=== PATIENT | female | born 1980 | race African-American/Black ===

== ENCOUNTER 2023-01-08 15:58 | Inpatient (IN) | payer OTHER, SELFPAY ==
[2023-01-08 16:30] VITALS: BP 128/92; PULSE 86; RESP 18; TEMP 36.5; O2SAT 98
[2023-01-08 16:36] VITALS: BMI 28.0
--- NOTE | 2023-01-08 17:24 | HO.PM.IMCN ---
History of Present Illness Data of Consult Service Date: 01/08/23 Requesting physician: Jesus Carey Primary Care Provider: Ankita Samano MD HPI Reason for consult: medical H&P 42-year-old female with history of bipolar disorder, anxiety, alcoholic cirrhosis, and alcohol dependence admitted to Psychiatry from [facility] ED. The patient is unavailable for exam but hospital records are reviewed. Shows a chronic thrombocytopenia related to her cirrhosis as well as mild normocytic anemia. Liver enzymes slightly elevated with AST 60, ALT 42, bilirubin unremarkable. Renal function normal, electrolyte levels normal. Urine tox screen negative except for cannabis. There are no acute medical issues at this time. Review of Systems Review of Systems: Yes Other (pt unavailable) [facility] Medical History (Updated 01/08/23 @ 17:28 by YANA Ordonez) Bipolar disorder Alcohol dependence Alcoholic cirrhosis Social History Household Members: Other Household Members Other:: roommate Housing: Apartment Do you presently have visiting nurse or other home services: No Patient Tobacco Use Status: Former Tobacco user Tobacco use type: Cigarette Smoked in Last 30 Days: No e-Cigarette/Vaping Use: Never Used Patient Interested in Nicotine Replacement: No Patient Given Instructions on How to Stop Smoking: No Second Hand Smoke Exposure: No Use of substances other than those prescribed or required for medical reasons: No Substance Use Type: Marijuana Substance Use Type Other:: pt denies current substance use, UTOX +THC Currently Displaying Signs/Symptoms of Drug Intoxication Withdrawal: No Any prior treatment program specific to substance use: No Have you been hit, kicked, punched, or otherwise hurt by someone within the past year? If so, by whom?: No Do you feel safe in your current relationship?: No Current Relationship Is there a partner from a previous relationship who is making you feel unsafe now?: No Are you made to feel afraid or neglected: No Spiritual Healthcare Practices: pt states I like to meditate Advance Directives: No Advance Directives Information Provided: Yes Do you have thoughts of harming others: None Do you have a plan to hurt others: No Plan Recently lost weight without trying: Yes How much weight loss: 2-13 pounds Eating poorly because of decreased appetite: Yes Nutrition screen score: 4 Nutrition Risks: No Nutritional Risk Patient : No : No Poor oral hygiene: No Meds Allergies Allergy/AdvReac Type Severity Reaction Status Date / Time No Known Drug Allergies Allergy Unknown Verified 01/08/23 16:36 Home Medications Medication Instructions Recorded Confirmed Last Taken Type acamprosate 333 mg tablet,delayed 666 mg PO TID 01/08/23 01/08/23 Unknown History release folic acid 1 mg tablet 1 mg PO DAILY 01/08/23 01/08/23 Unknown History risperidone 4 mg tablet 4 mg PO BEDTIME depressive disorder 01/08/23 01/08/23 Unknown History trazodone 50 mg tablet 50 mg PO BEDTIME depressive 01/08/23 01/08/23 Unknown History disorder Physical Exam Vital Signs and Narrative: Vital Signs: Last Vital Signs Temp 97.7 F 01/08/23 16:30 Pulse 86 01/08/23 16:30 Resp 18 01/08/23 16:30 BP 128/92 H 01/08/23 16:30 Pulse Ox 98 01/08/23 16:30 O2 Del Method Room Air 01/08/23 16:30 BMI result Body Mass Index 28.0 Pt unavailable for exam Assessment and Plan (1) Routine medical exam: Status: Acute Plan 42-year-old female with history of bipolar disorder, anxiety, alcoholic cirrhosis, and alcohol dependence admitted to Psychiatry from [facility] ED. #Mood disorder -plan per psychiatry #Alcohol dependence -plan per psychiatry -total cessation advised #Alcoholic cirrhosis -compensated -total etoh cessation advised -continue home meds Thank you for allowing me to participate in this consult. Signing off at this time. Please do not hesitate to call for further questions. Time Spent With Patient Time: Total time managing care of this patient today ____ minutes.
--- NOTE | 2023-01-08 18:22 | PC.ADMIT ---
Katerine was admitted to [facility] from [facility] for treatment of petra. The precipitant of admission includes poor sleep for multiple days and increased anxiety. She reports that she has not been taking her medications and states this is because they do not work. She is alert and oriented x4 but has poor insight into illness. She was overall cooperative with admission process. Sharps check was completed by staff. She denies current suicidal and homicidal thoughts and intent. She states she is able to seek out staff if having any safety issues. She denies history of SIB. She endorses auditory and visual hallucinations and states they're always kind of there, stuff flashing by and things like that, it might be because I'm not sleeping . She reports appetite is up and down . She reports history of ETOH abuse but states she has been sober x2 years, BAL was <3. She denies substance abuse but UTOX was +THC. She denies physical complaints at this time. She was placed on 15 minute checks for safety.
[2023-01-09 09:37] VITALS: BP 132/81; PULSE 73; RESP 18; TEMP 36.4; O2SAT 100
--- NOTE | 2023-01-09 12:22 | HO.PSYCHPN ---
Subjective Subjective Reason For Visit: Bipolar disorder Diagnostics Vital Signs (24Hr): Vital Signs - 24 hr 01/08/23 16:30 01/09/23 09:37 Temperature 97.7 F 97.5 F Pulse Rate 86 73 Respiratory Rate 18 18 Blood Pressure 128/92 H 132/81 Pulse Oximetry 98 100 Oxygen Delivery Method Room Air Room Air BMI result Body Mass Index 28.0 Medications Medications Current Medications Acamprosate (Acamprosate Calcium 333 Mg Tablet.) 666 mg PO TID [facility] Last Admin: 01/09/23 09:25 Dose: Not Given Acetaminophen (Acetaminophen 325 Mg Tablet) 650 mg PO Q6H PRN PRN Reason: Headache/Pain Mild Scale (1-3) Al Hydroxide/Mg Hydroxide (Magnesium Hydrox/Alum Hydrox 30 Ml Oral.Susp) 30 ml PO Q6H PRN PRN Reason: Heartburn/Nausea Folic Acid (Folic Acid 1 Mg Tablet) 1 mg PO DAILY [facility] Last Admin: 01/09/23 09:23 Dose: 1 mg Hydroxyzine HCl (Hydroxyzine Hcl 25 Mg Tablet) 25 mg PO Q6H PRN PRN Reason: Anxiety Last Admin: 01/09/23 12:13 Dose: 25 mg Magnesium Hydroxide (Milk Of Magnesia 30 Ml Oral.Susp) 30 ml PO DAILY PRN PRN Reason: Constipation Multivitamins/Vitamin C (Multivitamin Tablet) 1 tab PO DAILY [facility] Risperidone (Risperidone 2 Mg Tablet) 4 mg PO BEDTIME [facility] Last Admin: 01/08/23 20:37 Dose: 4 mg Trazodone HCl (Trazodone Hcl 50 Mg Tablet) 50 mg PO BEDTIME MRX1 PRN PRN Reason: Insomnia Allergies Allergies Allergy/AdvReac Type Severity Reaction Status Date / Time No Known Drug Allergies Allergy Unknown Verified 01/08/23 16:36 Assessment & Plan Assessment & Plan (1) Routine medical exam: Status: Acute Code(s): Z00.00 - Encounter for general adult medical examination without abnormal findings Plan 42-year-old female with history of bipolar disorder, anxiety, alcoholic cirrhosis, and alcohol dependence admitted to Psychiatry from [facility] ED. #Mood disorder -plan per psychiatry #Alcohol dependence -plan per psychiatry -total cessation advised #Alcoholic cirrhosis -compensated -total etoh cessation advised -continue home meds Thank you for allowing me to participate in this consult. Signing off at this time. Please do not hesitate to call for further questions. Time Spent With Patient Time: Total time managing care of this patient today ____ minutes.
--- NOTE | 2023-01-09 13:56 | HO.PSYADMNOT ---
HPI Date of Service: 01/09/23 Chief Complaint: Bipolar disorder Sources of Information: patient interviewed, chart reviewed and crisis/core team assessment reviewed HPI Subjective Notes: Conditional Voluntary Narrative: Patient is a 42 year old Female with a past history of bipolar disorder who is transferred from [facility]. She presented there with increased anxiety, inability to sleep and poor concentration. She was recently discharged from [facility]. She was not taking her perscribed Risperidone after discharge. Patient reports that Risperidone was helpful but unable to say why she stopped taking it. Patient says that i wasn't sleeping, I am aggitated because I cannot figure myself out. My life has been taking me on different paths and journeys. Patient appears pre-occupied during the interview and seems to be responding to internal stimuli. She is vauge and guarded. She reports poor sleep, overthinking, decrease energy, and paranoia. She reports her mood is agitated. She denies suicidal ideation. According to the crisis report, her sister said that she has episodes of catatonia. Past Psychiatric History: At least 3 prior inpatient phsyciatric hospitilizations at [facility]. No reported suicide attempts Reported diagnosis of Bipolar Disorder Medical Evaluation Reviewed: Yes [facility] Medical History (Updated 01/09/23 @ 22:22 by Juan Miguel Walker MD) Bipolar disorder Alcohol dependence Alcoholic cirrhosis Family History: None reported Social History: Single, never , no children. Patient graduated high school and had some college education. 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 She lives alone in [place]. Substance History: History of alcohol abuse. Urine toxicology positive for cannabis. Trauma History: Patient declines to elaborate. Diagnostics Vital Signs (24Hr): Vital Signs - 24 hr 01/08/23 16:30 01/09/23 09:37 Temperature 97.7 F 97.5 F Pulse Rate 86 73 Respiratory Rate 18 18 Blood Pressure 128/92 H 132/81 Pulse Oximetry 98 100 Oxygen Delivery Method Room Air Room Air BMI result Body Mass Index 28.0 Meds/Allergies Meds Home Medications Medication Instructions Recorded Confirmed Type acamprosate 333 mg tablet,delayed 666 mg PO TID 01/08/23 01/08/23 History release folic acid 1 mg tablet 1 mg PO DAILY 01/08/23 01/08/23 History risperidone 4 mg tablet 4 mg PO BEDTIME depressive disorder 01/08/23 01/08/23 History trazodone 50 mg tablet 50 mg PO BEDTIME depressive 01/08/23 01/08/23 History disorder Allergies Allergies Allergy/AdvReac Type Severity Reaction Status Date / Time No Known Drug Allergies Allergy Unknown Verified 01/08/23 16:36 Mental Status Exam Mental Status Exam Narrative: 42 year old female who appears her stated age. She is wearing a hospital gown. She appears disheveled. Her attitude she is evasive and guarded. Her speech is hesitant. She appears internally pre occupied. Her mood is agitated and her affect is flat and anxious. Her thought process is circumstantial. Thought content is positive for anxiety and paranoia. She denies active hallucinations but appears to be responding to internal stimuli. She denies suicidal ideation or homocudal ideation. She is alert and oriented to time place and person. Assessment & Plan Assessment & Plan (1) Bipolar 1 disorder, depressed: Status: Acute Code(s): F31.9 - Bipolar disorder, unspecified Plan 42 year old female with a history of bipolar disorder presents with increased depression and internal aggitation, anxiety and insomnia. She was recently discharged from [facility] and has been non complient with her medications. She appears internally pre-occcupied. She agrees to restart her medications. Plan: 1. Admit to M3 for safety and stabilization on a CV. 2. restart Risperidone 4 mg at bedtime. 3. Collateral information 4. Group and milieu therapy 5. Discharge planning Patient educated on: therapeutic strategies Reason for continued inpatient stay Substantial Risk for: inability to function and rapid decompensation Statement Statement: I have reviewed the history and physical and performed a pertinent examination on my patient. No changes have occurred unless specified. If the History and Physical was not performed prior to admission, the Hospitalist's service will be consulted for completing the admission physical. Time Spent With Patient Time: Total time managing care of this patient today ____ minutes.
[2023-01-10 07:50] VITALS: BP 124/79; PULSE 96; RESP 20; TEMP 36.7; O2SAT 100
--- NOTE | 2023-01-10 19:11 | HO.PSYCHPN ---
Subjective Subjective Date of Service: 01/10/23 Reason For Visit: Bipolar disorder Interim History: Patient seen and discussed. She remains isolated. She refused labs. Says she is bored. She was asked why she stopped Risperidone on DC from [place] she said she thought she was being attacked in her sleep. She started questioning how this junior copywriter knew about her hospitalization and was paranoid when it was explained it was in her crisis report. She was internally preoccupied and guarded. Refused Campral. Denied SI. Review of Systems Review of Systems Yes Other (pt unavailable) Mental Status Exam Mental Status Exam Narrative: 42 year old female who appears her stated age. She is wearing a hospital gown. She appears disheveled. Her attitude she is evasive and guarded. Her speech is hesitant. She appears internally pre occupied. Her mood is agitated and her affect is flat and anxious. Her thought process is circumstantial. Thought content is positive for anxiety and paranoia. She denies active hallucinations but appears to be responding to internal stimuli. She denies suicidal ideation or homocudal ideation. She is alert and oriented to time place and person. Diagnostics Vital Signs (24Hr): Vital Signs - 24 hr 01/10/23 07:50 Temperature 98.0 F Pulse Rate 96 Respiratory Rate 20 Blood Pressure 124/79 Pulse Oximetry 100 Oxygen Delivery Method Room Air BMI result Body Mass Index 28.0 Medications Medications Current Medications Acamprosate (Acamprosate Calcium 333 Mg Tablet.) 666 mg PO TID [facility] Last Admin: 01/10/23 15:29 Dose: 666 mg Acetaminophen (Acetaminophen 325 Mg Tablet) 650 mg PO Q6H PRN PRN Reason: Headache/Pain Mild Scale (1-3) Al Hydroxide/Mg Hydroxide (Magnesium Hydrox/Alum Hydrox 30 Ml Oral.Susp) 30 ml PO Q6H PRN PRN Reason: Heartburn/Nausea Folic Acid (Folic Acid 1 Mg Tablet) 1 mg PO DAILY [facility] Last Admin: 01/10/23 08:53 Dose: 1 mg Hydroxyzine HCl (Hydroxyzine Hcl 50 Mg Tablet) 50 mg PO QID PRN PRN Reason: Anxiety Last Admin: 01/10/23 14:37 Dose: 50 mg Magnesium Hydroxide (Milk Of Magnesia 30 Ml Oral.Susp) 30 ml PO DAILY PRN PRN Reason: Constipation Multivitamins/Vitamin C (Multivitamin Tablet) 1 tab PO DAILY [facility] Last Admin: 01/10/23 09:04 Dose: Not Given Risperidone (Risperidone 2 Mg Tablet) 4 mg PO BEDTIME [facility] Last Admin: 01/09/23 20:28 Dose: 4 mg Trazodone HCl (Trazodone Hcl 50 Mg Tablet) 50 mg PO BEDTIME MRX1 PRN PRN Reason: Insomnia Allergies Allergies Allergy/AdvReac Type Severity Reaction Status Date / Time No Known Drug Allergies Allergy Unknown Verified 01/08/23 16:36 Assessment & Plan Assessment & Plan (1) Bipolar 1 disorder, depressed: Status: Acute Code(s): F31.9 - Bipolar disorder, unspecified Plan 42 year old female with a history of bipolar disorder presents with increased depression and internal aggitation, anxiety and insomnia. She was recently discharged from [facility] and has been non complient with her medications. She appears internally pre-occcupied. She agrees to restart her medications. Plan: 1. Admit to [facility] for safety and stabilization on a CV. 2. restart Risperidone 4 mg at bedtime. 3. Collateral information 4. Group and milieu therapy 5. Discharge planning 01/10: Continue current treatment plan. Reason for continued inpatient stay Substantial Risk for: inability to function and rapid decompensation Time Spent With Patient Time: Total time managing care of this patient today ____ minutes.
[2023-01-10 19:40] VITALS: BP 121/77; PULSE 84; RESP 18; TEMP 36.6; O2SAT 100
[2023-01-11 09:45] VITALS: RESP 20; TEMP 36.4
--- NOTE | 2023-01-11 12:09 | HO.PSYCHPN ---
Subjective Subjective Date of Service: 01/11/23 Reason For Visit: Bipolar disorder Subjective Notes: Conditional Voluntary Interim History: Patient was seen and discussed in rounds today. Records and plans were reviewed. She continues to be isolative, guarded and complained of feeling very anxious and jittery. She has been refusing her camper all. Using hydroxyzine but states that is not enough. I will add Seroquel 25 mg t.i.d. p.r.n.. Side effects reviewed. Eating and sleeping adequately. Medication Compliance: Intermittent Side effects from medications: No Attending Groups: Yes Diagnostics Vital Signs (24Hr): Vital Signs - 24 hr 01/10/23 19:40 01/11/23 09:45 Temperature 97.9 F 97.5 F Pulse Rate 84 Respiratory Rate 18 20 Blood Pressure 121/77 Pulse Oximetry 100 Oxygen Delivery Method Room Air BMI result Body Mass Index 28.0 Medications Medications Current Medications Acamprosate (Acamprosate Calcium 333 Mg Tablet.) 666 mg PO TID [facility] Last Admin: 01/11/23 09:50 Dose: 666 mg Acetaminophen (Acetaminophen 325 Mg Tablet) 650 mg PO Q6H PRN PRN Reason: Headache/Pain Mild Scale (1-3) Al Hydroxide/Mg Hydroxide (Magnesium Hydrox/Alum Hydrox 30 Ml Oral.Susp) 30 ml PO Q6H PRN PRN Reason: Heartburn/Nausea Folic Acid (Folic Acid 1 Mg Tablet) 1 mg PO DAILY [facility] Last Admin: 01/11/23 09:49 Dose: 1 mg Hydroxyzine HCl (Hydroxyzine Hcl 50 Mg Tablet) 50 mg PO QID PRN PRN Reason: Anxiety Last Admin: 01/11/23 09:55 Dose: 50 mg Magnesium Hydroxide (Milk Of Magnesia 30 Ml Oral.Susp) 30 ml PO DAILY PRN PRN Reason: Constipation Multivitamins/Vitamin C (Multivitamin Tablet) 1 tab PO DAILY [facility] Last Admin: 01/11/23 09:49 Dose: 1 tab Risperidone (Risperidone 2 Mg Tablet) 4 mg PO BEDTIME [facility] Last Admin: 01/10/23 21:10 Dose: 4 mg Trazodone HCl (Trazodone Hcl 50 Mg Tablet) 50 mg PO BEDTIME MRX1 PRN PRN Reason: Insomnia Allergies Allergies Allergy/AdvReac Type Severity Reaction Status Date / Time No Known Drug Allergies Allergy Unknown Verified 01/08/23 16:36 Assessment & Plan Assessment & Plan (1) Bipolar 1 disorder, depressed: Status: Acute Code(s): F31.9 - Bipolar disorder, unspecified Plan 42 year old female with a history of bipolar disorder presents with increased depression and internal aggitation, anxiety and insomnia. She was recently discharged from [facility] and has been non complient with her medications. She appears internally pre-occcupied. She agrees to restart her medications. Plan: 1. Admit to [facility] for safety and stabilization on a CV. 2. restart Risperidone 4 mg at bedtime. 3. Collateral information 4. Group and milieu therapy 5. Discharge planning 01/10: Continue current treatment plan. 01/11: Continue current regimen and plans. Add Seroquel 25 mg t.i.d. p.r.n. Patient educated on: medication risk/benefits Reason for continued inpatient stay Substantial Risk for: med/psych decompensation Time Spent With Patient Time: Total time managing care of this patient today ____ minutes.
--- NOTE | 2023-01-11 14:37 | MHC.CLN ---
NUTRITION CONSULT FOR PATIENT REPORTED WEIGHT LOSS GREATER THAN 10# X ONE MONTH. VISITED WITH PATIENT ON UNIT. STATED THAT CURRENTLY EATING WELL. DOES NOT WANT SUPPLEMENT. NO ADDITIONAL NUTRITION INTERVENTIONS AT THIS TIME.
[2023-01-11 21:00] VITALS: RESP 18
[2023-01-12 08:54] VITALS: BP 96/55; PULSE 74; RESP 20; TEMP 36.6; O2SAT 100
--- NOTE | 2023-01-12 09:35 | HO.PSYCHPN ---
Subjective Subjective Date of Service: 01/12/23 Reason For Visit: Bipolar disorder Subjective Notes: Conditional Voluntary Interim History: Reviewed in team and . Patient presents guarded and irritable; perseverative about her coloring markers. Patient stated, I hate having to ask for everything. I'm stressed out. I want a 1:1 so I can use my markers . T/W explained the reasons someone is placed on a 1:1 and her wanting markers would not be a reason. She was given the option to use her markers in the common area. Pt stated, I don't want to be around positive people. I want to avoid the negative energy. I don't want to hear people talk about suicide . Patient presents with some paranoid thought content. Pt stated, I don't like taking pills at night because, every time I'm in the hospital I wake up with a bloody mouth and feel like someone beat me up . Patient was informed that she would be kept safe while on the unit and staff would be conducting safety checks on patients throughout the night. Patient did not acknowledge T/W and would continue to bring the conversation back to her coloring markers. When asked if she was feeling suicidal; pt stated, I don't know. This is how I have to act to get what I want now . Medication Compliance: Intermittent Side effects from medications: No Attending Groups: No Review of Systems Constitutional: Reports as per HPI Eyes: Reports as per HPI Reports as per HPI Cardiovascular: Reports as per HPI Respiratory: Reports as per HPI Gastrointestinal: Reports as per HPI Genitourinary: Reports as per HPI Musculoskeletal: Reports as per HPI Skin/Breast: Reports as per HPI Reports as per HPI Psychiatric: Reports as per HPI Endocrine: Reports as per HPI Hematologic/Lymphatic: Reports as per HPI Allergic/Immunologic: Reports as per HPI Mental Status Exam Mental Status Exam Narrative: Pt is alert and oriented; behavior is guarded and irritable; dressed in casual attire; mood is described as anxious ; eye contact appropriate; Speech is normal rate, volume and prosody and not pressured; no psychomotor agitation/retardation present; thought process is organized; Thought content is perseverative; presents with some delusions regarding taking medications at night while at hospitals;. There is no evidence of perceptual disturbance. Patients insight and judgment are poor.. Diagnostics Vital Signs (24Hr): Vital Signs - 24 hr 01/11/23 09:45 01/11/23 21:00 01/12/23 08:54 Temperature 97.5 F 97.8 F Pulse Rate 74 Respiratory Rate 20 18 20 Blood Pressure 96/55 L Pulse Oximetry 100 Oxygen Delivery Method Room Air BMI result Body Mass Index 28.0 Medications Medications Current Medications Acamprosate (Acamprosate Calcium 333 Mg Tablet.Dr) 666 mg PO TID [facility] Last Admin: 01/12/23 08:45 Dose: Not Given Acetaminophen (Acetaminophen 325 Mg Tablet) 650 mg PO Q6H PRN PRN Reason: Headache/Pain Mild Scale (1-3) Al Hydroxide/Mg Hydroxide (Magnesium Hydrox/Alum Hydrox 30 Ml Oral.Susp) 30 ml PO Q6H PRN PRN Reason: Heartburn/Nausea Folic Acid (Folic Acid 1 Mg Tablet) 1 mg PO DAILY [facility] Last Admin: 01/12/23 08:44 Dose: 1 mg Hydroxyzine HCl (Hydroxyzine Hcl 50 Mg Tablet) 50 mg PO QID PRN PRN Reason: Anxiety Last Admin: 01/11/23 09:55 Dose: 50 mg Magnesium Hydroxide (Milk Of Magnesia 30 Ml Oral.Susp) 30 ml PO DAILY PRN PRN Reason: Constipation Multivitamins/Vitamin C (Multivitamin Tablet) 1 tab PO DAILY [facility] Last Admin: 01/12/23 08:44 Dose: 1 tab Quetiapine Fumarate (Quetiapine Fumarate 25 Mg Tablet) 25 mg PO TID PRN PRN Reason: Anxiety Last Admin: 01/11/23 15:10 Dose: 25 mg Risperidone (Risperidone 2 Mg Tablet) 4 mg PO BEDTIME [facility] Last Admin: 01/11/23 21:03 Dose: 4 mg Trazodone HCl (Trazodone Hcl 50 Mg Tablet) 50 mg PO BEDTIME MRX1 PRN PRN Reason: Insomnia Allergies Allergies Allergy/AdvReac Type Severity Reaction Status Date / Time No Known Drug Allergies Allergy Unknown Verified 01/08/23 16:36 Assessment & Plan Assessment & Plan (1) Bipolar 1 disorder, depressed: Status: Acute Code(s): F31.9 - Bipolar disorder, unspecified Plan 42 year old female with a history of bipolar disorder presents with increased depression and internal aggitation, anxiety and insomnia. She was recently discharged from [facility] and has been non complient with her medications. She appears internally pre-occcupied. She agrees to restart her medications. Plan: 1. Admit to [facility]3 for safety and stabilization on a CV. 2. restart Risperidone 4 mg at bedtime. 3. Collateral information 4. Group and milieu therapy 5. Discharge planning 01/10: Continue current treatment plan. 01/11: Continue current regimen and plans. Add Seroquel 25 mg t.i.d. p.r.n. 01/12: Patient presents guarded and irritable; perseverative about her coloring markers. Patient stated, I hate having to ask for everything. I'm stressed out. I want a 1:1 so I can use my markers . T/W explained the reasons someone is placed on a 1:1 and her wanting markers would not be a reason. She was given the option to use her markers in the common area. Pt stated, I don't want to be around positive people. I want to avoid the negative energy. I don't want to hear people talk about suicide . Patient presents with some paranoid thought content. Pt stated, I don't like taking pills at night because, every time I'm in the hospital I wake up with a bloody mouth and feel like someone beat me up . Patient was informed that she would be kept safe while on the unit and staff would be conducting safety checks on patients throughout the night. Patient did not acknowledge T/W and would continue to bring the conversation back to her coloring markers. When asked if she was feeling suicidal; pt stated, I don't know. This is how I have to act to get what I want now . Start: Seroquel 50mg PO BID Patient educated on: diagnosis, medication risk/benefits and therapeutic strategies Informed Consent: understands and further education needed Reason for continued inpatient stay Substantial Risk for: med/psych decompensation Time Spent With Patient Time: Total time managing care of this patient today _30___ minutes.
[2023-01-12 22:11] VITALS: RESP 14
--- NOTE | 2023-01-13 09:07 | HO.PSYCHPN ---
Subjective Subjective Date of Service: 01/13/23 Reason For Visit: Bipolar disorder Subjective Notes: Conditional Voluntary Interim History: Reviewed in team and . Patient continues to present guarded and irritable; perseverative about her coloring markers. Patient stated, I'm still aggravated about having to ask for everything. I feel like it's a watching game here and I don't like it . Patient continues to presents with some delusional thought content. She reports not knowing if I have auditory or visual hallucinations ; Pt was educated on perceptual disturbances. denies SI/HI. Pt stated, I don't know if the Seroquel did anything ; pt reports she is willing to increase dosage tomorrow. Medication Compliance: Intermittent Side effects from medications: No Attending Groups: Intermittent Review of Systems Constitutional: Reports as per HPI Eyes: Reports as per HPI Reports as per HPI Cardiovascular: Reports as per HPI Respiratory: Reports as per HPI Gastrointestinal: Reports as per HPI Genitourinary: Reports as per HPI Musculoskeletal: Reports as per HPI Skin/Breast: Reports as per HPI Reports as per HPI Psychiatric: Reports as per HPI Endocrine: Reports as per HPI Hematologic/Lymphatic: Reports as per HPI Allergic/Immunologic: Reports as per HPI Mental Status Exam Mental Status Exam Narrative: Pt is alert and oriented; behavior is guarded and irritable; dressed in casual attire; mood is described as anxious ; eye contact appropriate; Speech is normal rate, volume and prosody and not pressured; no psychomotor agitation/retardation present; thought process is organized; Thought content is perseverative; presents with some delusions regarding taking medications at night while at hospitals;. There is no evidence of perceptual disturbance. Patients insight and judgment are poor.. Diagnostics Vital Signs (24Hr): Vital Signs - 24 hr 01/12/23 22:11 Respiratory Rate 14 BMI result Body Mass Index 28.0 Medications Medications Current Medications Acamprosate (Acamprosate Calcium 333 Mg Tablet.) 666 mg PO TID [facility] Last Admin: 01/12/23 22:10 Dose: Not Given Acetaminophen (Acetaminophen 325 Mg Tablet) 650 mg PO Q6H PRN PRN Reason: Headache/Pain Mild Scale (1-3) Al Hydroxide/Mg Hydroxide (Magnesium Hydrox/Alum Hydrox 30 Ml Oral.Susp) 30 ml PO Q6H PRN PRN Reason: Heartburn/Nausea Folic Acid (Folic Acid 1 Mg Tablet) 1 mg PO DAILY [facility] Last Admin: 01/12/23 08:44 Dose: 1 mg Hydroxyzine HCl (Hydroxyzine Hcl 50 Mg Tablet) 50 mg PO QID PRN PRN Reason: Anxiety Last Admin: 01/12/23 14:33 Dose: 50 mg Magnesium Hydroxide (Milk Of Magnesia 30 Ml Oral.Susp) 30 ml PO DAILY PRN PRN Reason: Constipation Multivitamins/Vitamin C (Multivitamin Tablet) 1 tab PO DAILY [facility] Last Admin: 01/12/23 08:44 Dose: 1 tab Quetiapine Fumarate (Quetiapine Fumarate 25 Mg Tablet) 25 mg PO TID PRN PRN Reason: Anxiety Last Admin: 01/11/23 15:10 Dose: 25 mg Quetiapine Fumarate (Quetiapine Fumarate 50 Mg Tablet) 50 mg PO BID [facility] Last Admin: 01/12/23 22:10 Dose: Not Given Risperidone (Risperidone 2 Mg Tablet) 4 mg PO BEDTIME [facility] Last Admin: 01/12/23 22:08 Dose: 4 mg Trazodone HCl (Trazodone Hcl 50 Mg Tablet) 50 mg PO BEDTIME MRX1 PRN PRN Reason: Insomnia Allergies Allergies Allergy/AdvReac Type Severity Reaction Status Date / Time No Known Drug Allergies Allergy Unknown Verified 01/08/23 16:36 Assessment & Plan Assessment & Plan (1) Bipolar 1 disorder, depressed: Status: Acute Code(s): F31.9 - Bipolar disorder, unspecified Plan 42 year old female with a history of bipolar disorder presents with increased depression and internal aggitation, anxiety and insomnia. She was recently discharged from [facility] and has been non complient with her medications. She appears internally pre-occcupied. She agrees to restart her medications. Plan: 1. Admit to M3 for safety and stabilization on a CV. 2. restart Risperidone 4 mg at bedtime. 3. Collateral information 4. Group and milieu therapy 5. Discharge planning 01/10: Continue current treatment plan. 01/11: Continue current regimen and plans. Add Seroquel 25 mg t.i.d. p.r.n. 01/12: Patient presents guarded and irritable; perseverative about her coloring markers. Patient stated, I hate having to ask for everything. I'm stressed out. I want a 1:1 so I can use my markers . T/W explained the reasons someone is placed on a 1:1 and her wanting markers would not be a reason. She was given the option to use her markers in the common area. Pt stated, I don't want to be around positive people. I want to avoid the negative energy. I don't want to hear people talk about suicide . Patient presents with some paranoid thought content. Pt stated, I don't like taking pills at night because, every time I'm in the hospital I wake up with a bloody mouth and feel like someone beat me up . Patient was informed that she would be kept safe while on the unit and staff would be conducting safety checks on patients throughout the night. Patient did not acknowledge T/W and would continue to bring the conversation back to her coloring markers. When asked if she was feeling suicidal; pt stated, I don't know. This is how I have to act to get what I want now . Start: Seroquel 50mg PO BID 01/13: Patient continues to present guarded and irritable; perseverative about her coloring markers. Patient stated, I'm still aggravated about having to ask for everything. I feel like it's a watching game here and I don't like it . Patient continues to presents with some delusional thought content. She reports not knowing if I have auditory or visual hallucinations ; Pt was educated on perceptual disturbances. denies SI/HI. Pt stated, I don't know if the Seroquel did anything ; pt reports she is willing to increase dosage tomorrow. Increased Risperidal to 5mg PO bedtime. Patient educated on: diagnosis, medication risk/benefits and therapeutic strategies Informed Consent: understands and further education needed Reason for continued inpatient stay Substantial Risk for: med/psych decompensation Time Spent With Patient Time: Total time managing care of this patient today _30___ minutes.
[2023-01-13 09:30] VITALS: BP 122/89; PULSE 103; RESP 18; TEMP 36.5; O2SAT 98
[2023-01-13] MEDS: hydrOXYzine HCL 50 MG TABLET PO (16:26)
[2023-01-13 20:25] VITALS: BP 131/82; PULSE 88; RESP 16; TEMP 36.7; O2SAT 100
[2023-01-13] MEDS: RISPERIDONE 5 MG PO (21:55)
[2023-01-14] MEDS: Multivitamin TABLET 1 TAB PO (08:57)
[2023-01-14] MEDS: Folic Acid 1 MG TABLET PO (08:57)
[2023-01-14 09:36] VITALS: BP 116/75; PULSE 82; RESP 20; TEMP 36.7; O2SAT 99
--- NOTE | 2023-01-14 09:43 | P.PNPSI_ITS ---
Subjective Subjective Date of Service: 01/14/23 Reason For Visit: Bipolar disorder Subjective Notes: Conditional Voluntary Interim History: Reviewed in team and . Patient continues to present guarded and irritable; perseverative about her coloring markers. Patient stated, I still don't understand why I have to ask for everything. I don't want to go to groups and be around other people. I want a 1:1 to be able to use my markers in my room . Patient reports she is willing to try a mood stabilizer because I'm tired of feeling angry and anxious and I don't want to drag out the treatment process . Pt reports she did not like how the Seroquel made her feel. Medication Compliance: Intermittent Side effects from medications: No Attending Groups: No Review of Systems Constitutional: Reports as per HPI Eyes: Reports as per HPI Reports as per HPI Cardiovascular: Reports as per HPI Respiratory: Reports as per HPI Gastrointestinal: Reports as per HPI Genitourinary: Reports as per HPI Musculoskeletal: Reports as per HPI Skin/Breast: Reports as per HPI Reports as per HPI Psychiatric: Reports as per HPI Endocrine: Reports as per HPI Hematologic/Lymphatic: Reports as per HPI Allergic/Immunologic: Reports as per HPI Mental Status Exam Mental Status Exam Narrative: Pt is alert and oriented; behavior is guarded and irritable; dressed in casual attire; mood is described as anxious ; eye contact appropriate; Speech is normal rate, volume and prosody and not pressured; no psychomotor agitation/retardation present; thought process is organized; Thought content is perseverative; presents with some delusions regarding taking medications at night while at hospitals;. There is no evidence of perceptual disturbance. Patients insight and judgment are poor.. Diagnostics Vital Signs (24Hr): Vital Signs - 24 hr 01/13/23 20:25 01/14/23 09:36 Temperature 98.1 F 98.1 F Pulse Rate 88 82 Respiratory Rate 16 20 Blood Pressure 131/82 116/75 Pulse Oximetry 100 99 Oxygen Delivery Method Room Air Room Air BMI result Body Mass Index 28.0 Medications Medications Current Medications Acamprosate (Acamprosate Calcium 333 Mg Tablet.) 666 mg PO TID [facility] Last Admin: 01/14/23 08:58 Dose: Not Given Acetaminophen (Acetaminophen 325 Mg Tablet) 650 mg PO Q6H PRN PRN Reason: Headache/Pain Mild Scale (1-3) Al Hydroxide/Mg Hydroxide (Magnesium Hydrox/Alum Hydrox 30 Ml Oral.Susp) 30 ml PO Q6H PRN PRN Reason: Heartburn/Nausea Folic Acid (Folic Acid 1 Mg Tablet) 1 mg PO DAILY [facility] Last Admin: 01/14/23 08:57 Dose: 1 mg Hydroxyzine HCl (Hydroxyzine Hcl 50 Mg Tablet) 50 mg PO QID PRN PRN Reason: Anxiety Last Admin: 01/13/23 16:26 Dose: 50 mg Magnesium Hydroxide (Milk Of Magnesia 30 Ml Oral.Susp) 30 ml PO DAILY PRN PRN Reason: Constipation Multivitamins/Vitamin C (Multivitamin Tablet) 1 tab PO DAILY [facility] Last Admin: 01/14/23 08:57 Dose: 1 tab Quetiapine Fumarate (Quetiapine Fumarate 25 Mg Tablet) 25 mg PO TID PRN PRN Reason: Anxiety Last Admin: 01/11/23 15:10 Dose: 25 mg Quetiapine Fumarate (Quetiapine Fumarate 50 Mg Tablet) 50 mg PO BID [facility] Last Admin: 01/14/23 08:58 Dose: Not Given Risperidone 3 mg/ Risperidone (2 mg) 5 mg PO BEDTIME [facility] Last Admin: 01/13/23 21:55 Dose: 5 mg Trazodone HCl (Trazodone Hcl 50 Mg Tablet) 50 mg PO BEDTIME MRX1 PRN PRN Reason: Insomnia Allergies Allergies Allergy/AdvReac Type Severity Reaction Status Date / Time No Known Drug Allergies Allergy Unknown Verified 01/08/23 16:36 Assessment & Plan Assessment & Plan (1) Bipolar 1 disorder, depressed: Status: Acute Code(s): F31.9 - Bipolar disorder, unspecified Plan 42 year old female with a history of bipolar disorder presents with increased depression and internal aggitation, anxiety and insomnia. She was recently discharged from [facility] and has been non complient with her medications. She appears internally pre-occcupied. She agrees to restart her medications. Plan: 1. Admit to M3 for safety and stabilization on a CV. 2. restart Risperidone 4 mg at bedtime. 3. Collateral information 4. Group and milieu therapy 5. Discharge planning 01/10: Continue current treatment plan. 01/11: Continue current regimen and plans. Add Seroquel 25 mg t.i.d. p.r.n. 01/12: Patient presents guarded and irritable; perseverative about her coloring markers. Patient stated, I hate having to ask for everything. I'm stressed out. I want a 1:1 so I can use my markers . T/W explained the reasons someone is placed on a 1:1 and her wanting markers would not be a reason. She was given the option to use her markers in the common area. Pt stated, I don't want to be around positive people. I want to avoid the negative energy. I don't want to hear people talk about suicide . Patient presents with some paranoid thought content. Pt stated, I don't like taking pills at night because, every time I'm in the hospital I wake up with a bloody mouth and feel like someone beat me up . Patient was informed that she would be kept safe while on the unit and staff would be conducting safety checks on patients throughout the night. Patient did not acknowledge T/W and would continue to bring the conversation back to her coloring markers. When asked if she was feeling suicidal; pt stated, I don't know. This is how I have to act to get what I want now . Start: Seroquel 50mg PO BID 01/13: Patient continues to present guarded and irritable; perseverative about her coloring markers. Patient stated, I'm still aggravated about having to ask for everything. I feel like it's a watching game here and I don't like it . Patient continues to presents with some delusional thought content. She reports not knowing if I have auditory or visual hallucinations ; Pt was educated on perceptual disturbances. denies SI/HI. Pt stated, I don't know if the Seroquel did anything ; pt reports she is willing to increase dosage tomorrow. Increased Risperidal to 5mg PO bedtime. 01/14: Patient continues to present guarded and irritable; perseverative about her coloring markers. Patient stated, I still don't understand why I have to ask for everything. I don't want to go to groups and be around other people. I want a 1:1 to be able to use my markers in my room . Patient reports she is willing to try a mood stabilizer because I'm tired of feeling angry and anxious and I don't want to drag out the treatment process . Pt reports she did not like how the Seroquel made her feel. DC Seroquel. Pt refused labs, stated, I don't like needles and I'm not getting labs done . Start: Trileptal 150mg PO daiy and Trileptal 300mg PO bedtime. Patient educated on: diagnosis, medication risk/benefits and therapeutic strategies Informed Consent: understands and further education needed Reason for continued inpatient stay Substantial Risk for: med/psych decompensation Time Spent With Patient Time: Total time managing care of this patient today _30___ minutes.
[2023-01-14 20:38] VITALS: RESP 16
[2023-01-14] MEDS: hydrOXYzine HCL 50 MG TABLET PO (23:12)
--- NOTE | 2023-01-15 09:25 | HO.PSYCHPN ---
Subjective Subjective Date of Service: 01/15/23 Reason For Visit: Bipolar disorder Subjective Notes: 3 Day Interim History: Reviewed in team and . Patient continues to present guarded and irritable; perseverative about her coloring markers. Room search was conducted by staff d/t patient refusing to return her markers that contained a metal tip; marker was found hidden in patients shoe. Patient expressed frustrated regarding markers and room search. Today, pt signed 3 day notice. Observed attending art group, keeping to self. Patient stated, I took the medication. I want to leave but I don't want to dent the process. I want to see how the new mediation goes . Pt denies SI/HI/VH/AH. Medication Compliance: Intermittent Side effects from medications: No Attending Groups: Intermittent Review of Systems Constitutional: Reports as per HPI Eyes: Reports as per HPI Reports as per HPI Cardiovascular: Reports as per HPI Respiratory: Reports as per HPI Gastrointestinal: Reports as per HPI Genitourinary: Reports as per HPI Musculoskeletal: Reports as per HPI Skin/Breast: Reports as per HPI Reports as per HPI Psychiatric: Reports as per HPI Endocrine: Reports as per HPI Hematologic/Lymphatic: Reports as per HPI Allergic/Immunologic: Reports as per HPI Mental Status Exam Mental Status Exam Narrative: Pt is alert and oriented; behavior is guarded and irritable; dressed in casual attire; mood is described as anxious ; eye contact appropriate; Speech is normal rate, volume and prosody and not pressured; no psychomotor agitation/retardation present; thought process is organized and goal directed; Thought content is on tx; otherwise pertinent to relevant topics and without any delusional content, paranoid ideations or grandiosity; denies SI/HI. There is no evidence of perceptual disturbance. Patients insight and judgment are poor but improving. Diagnostics Vital Signs (24Hr): Vital Signs - 24 hr 01/14/23 09:36 01/14/23 20:38 Temperature 98.1 F Pulse Rate 82 Respiratory Rate 20 16 Blood Pressure 116/75 Pulse Oximetry 99 Oxygen Delivery Method Room Air BMI result Body Mass Index 28.0 Medications Medications Current Medications Acamprosate (Acamprosate Calcium 333 Mg Tablet.) 666 mg PO TID [facility] Last Admin: 01/15/23 08:56 Dose: Not Given Acetaminophen (Acetaminophen 325 Mg Tablet) 650 mg PO Q6H PRN PRN Reason: Headache/Pain Mild Scale (1-3) Al Hydroxide/Mg Hydroxide (Magnesium Hydrox/Alum Hydrox 30 Ml Oral.Susp) 30 ml PO Q6H PRN PRN Reason: Heartburn/Nausea Folic Acid (Folic Acid 1 Mg Tablet) 1 mg PO DAILY [facility] Last Admin: 01/15/23 08:56 Dose: Not Given Hydroxyzine HCl (Hydroxyzine Hcl 50 Mg Tablet) 50 mg PO QID PRN PRN Reason: Anxiety Last Admin: 01/14/23 23:12 Dose: 50 mg Magnesium Hydroxide (Milk Of Magnesia 30 Ml Oral.Susp) 30 ml PO DAILY PRN PRN Reason: Constipation Multivitamins/Vitamin C (Multivitamin Tablet) 1 tab PO DAILY [facility] Last Admin: 01/15/23 08:56 Dose: Not Given Oxcarbazepine (Oxcarbazepine 150 Mg Tablet) 150 mg PO DAILY [facility] Last Admin: 01/15/23 08:56 Dose: Not Given Oxcarbazepine (Oxcarbazepine 300 Mg Tablet) 300 mg PO BEDTIME [facility] Last Admin: 01/14/23 23:28 Dose: Not Given Risperidone 3 mg/ Risperidone (2 mg) 5 mg PO BEDTIME [facility] Last Admin: 01/14/23 23:28 Dose: Not Given Trazodone HCl (Trazodone Hcl 50 Mg Tablet) 50 mg PO BEDTIME MRX1 PRN PRN Reason: Insomnia Allergies Allergies Allergy/AdvReac Type Severity Reaction Status Date / Time No Known Drug Allergies Allergy Unknown Verified 01/08/23 16:36 Assessment & Plan Assessment & Plan (1) Bipolar 1 disorder, depressed: Status: Acute Code(s): F31.9 - Bipolar disorder, unspecified Plan 42 year old female with a history of bipolar disorder presents with increased depression and internal aggitation, anxiety and insomnia. She was recently discharged from [facility] and has been non complient with her medications. She appears internally pre-occcupied. She agrees to restart her medications. Plan: 1. Admit to M3 for safety and stabilization on a CV. 2. restart Risperidone 4 mg at bedtime. 3. Collateral information 4. Group and milieu therapy 5. Discharge planning 01/10: Continue current treatment plan. 01/11: Continue current regimen and plans. Add Seroquel 25 mg t.i.d. p.r.n. 01/12: Patient presents guarded and irritable; perseverative about her coloring markers. Patient stated, I hate having to ask for everything. I'm stressed out. I want a 1:1 so I can use my markers . T/W explained the reasons someone is placed on a 1:1 and her wanting markers would not be a reason. She was given the option to use her markers in the common area. Pt stated, I don't want to be around positive people. I want to avoid the negative energy. I don't want to hear people talk about suicide . Patient presents with some paranoid thought content. Pt stated, I don't like taking pills at night because, every time I'm in the hospital I wake up with a bloody mouth and feel like someone beat me up . Patient was informed that she would be kept safe while on the unit and staff would be conducting safety checks on patients throughout the night. Patient did not acknowledge T/W and would continue to bring the conversation back to her coloring markers. When asked if she was feeling suicidal; pt stated, I don't know. This is how I have to act to get what I want now . Start: Seroquel 50mg PO BID 01/13: Patient continues to present guarded and irritable; perseverative about her coloring markers. Patient stated, I'm still aggravated about having to ask for everything. I feel like it's a watching game here and I don't like it . Patient continues to presents with some delusional thought content. She reports not knowing if I have auditory or visual hallucinations ; Pt was educated on perceptual disturbances. denies SI/HI. Pt stated, I don't know if the Seroquel did anything ; pt reports she is willing to increase dosage tomorrow. Increased Risperidal to 5mg PO bedtime. 01/14: Patient continues to present guarded and irritable; perseverative about her coloring markers. Patient stated, I still don't understand why I have to ask for everything. I don't want to go to groups and be around other people. I want a 1:1 to be able to use my markers in my room . Patient reports she is willing to try a mood stabilizer because I'm tired of feeling angry and anxious and I don't want to drag out the treatment process . Pt reports she did not like how the Seroquel made her feel. DC Seroquel. Pt refused labs, stated, I don't like needles and I'm not getting labs done . Start: Trileptal 150mg PO daiy and Trileptal 300mg PO bedtime. 01/15: Patient continues to present guarded and irritable; perseverative about her coloring markers. Room search was conducted by staff d/t patient refusing to return her markers that contained a metal tip; marker was found hidden in patients shoe. Patient expressed frustrated regarding markers and room search. Today, pt signed 3 day notice. Observed attending art group, keeping to self. Patient stated, I took the medication. I want to leave but I don't want to dent the process. I want to see how the new mediation goes . Pt denies SI/HI/VH/AH. Patient educated on: diagnosis, medication risk/benefits and therapeutic strategies Informed Consent: understands Reason for continued inpatient stay Substantial Risk for: med/psych decompensation Time Spent With Patient Time: Total time managing care of this patient today _30___ minutes.
[2023-01-15] MEDS: Folic Acid 1 MG TABLET PO (09:35)
[2023-01-15] MEDS: Acamprosate Calcium 333 MG TABLET.DR 666 MG PO (09:35)
[2023-01-15] MEDS: OXcarbazepine 150 MG TABLET PO (09:35)
[2023-01-15] MEDS: Multivitamin TABLET 1 TAB PO (09:35)
--- NOTE | 2023-01-15 19:37 | PC.NURSE ---
pt signed a 3 day on 01/15, up on Saturday 01/20
[2023-01-15 21:40] VITALS: BP 117/69; PULSE 83; RESP 18; TEMP 36.9; O2SAT 99
[2023-01-15] MEDS: RISPERIDONE 5 MG PO (21:40)
[2023-01-15] MEDS: OXcarbazepine 300 MG TABLET PO (21:40)
[2023-01-16 08:40] VITALS: BP 137/76; PULSE 84; RESP 16; TEMP 36.2; O2SAT 99
[2023-01-16] MEDS: OXcarbazepine 150 MG TABLET PO (08:41)
[2023-01-16] MEDS: Acamprosate Calcium 333 MG TABLET.DR 666 MG PO (08:41)
[2023-01-16] MEDS: Multivitamin TABLET 1 TAB PO (08:41)
[2023-01-16] MEDS: Folic Acid 1 MG TABLET PO (08:42)
[2023-01-16] MEDS: hydrOXYzine HCL 50 MG TABLET PO (11:40)
--- NOTE | 2023-01-16 16:46 | P.PNPSI_ITS ---
Subjective Subjective Date of Service: 01/16/23 Reason For Visit: Bipolar disorder Interim History: Pt reports things are slowly getting better. Less irritable my mood is more consistent and feels trileptal is helpful. Anxiety still problematic at times- discussed increasing hydroxyzine dosing. Sleep ok. No SI or psychosis. Feels reasonably supported. Prefers not to attend most groups Medication Compliance: Yes Side effects from medications: No Attending Groups: No Review of Systems Acute medical concerns: No Review of Systems Review of Systems Yes all other systems are reviewed and are negative Mental Status Exam Mental Status Exam Narrative: Pt is alert and oriented; behavior is guarded. NOt irritable today; dressed in casual attire; mood is described as anxious ; eye contact appropriate; Speech is normal rate, volume and prosody and not pressured; no psychomotor agitation/retardation present; thought process is organized and goal directed; Thought content is on tx; otherwise pertinent to relevant topics and without any delusional content, paranoid ideations or grandiosity; denies SI/HI. There is no evidence of perceptual disturbance. Patients insight and judgment are poor but improving. Diagnostics Vital Signs (24Hr): Vital Signs - 24 hr 01/15/23 21:40 01/16/23 08:40 Temperature 98.4 F 97.2 F Pulse Rate 83 84 Respiratory Rate 18 16 Blood Pressure 117/69 137/76 Pulse Oximetry 99 99 Oxygen Delivery Method Room Air Room Air BMI result Body Mass Index 28.0 Medications Medications Current Medications Acamprosate (Acamprosate Calcium 333 Mg Tablet.) 666 mg PO TID [facility] Last Admin: 01/16/23 16:09 Dose: Not Given Acetaminophen (Acetaminophen 325 Mg Tablet) 650 mg PO Q6H PRN PRN Reason: Headache/Pain Mild Scale (1-3) Al Hydroxide/Mg Hydroxide (Magnesium Hydrox/Alum Hydrox 30 Ml Oral.Susp) 30 ml PO Q6H PRN PRN Reason: Heartburn/Nausea Folic Acid (Folic Acid 1 Mg Tablet) 1 mg PO DAILY [facility] Last Admin: 01/16/23 08:42 Dose: 1 mg Hydroxyzine HCl (Hydroxyzine Hcl 50 Mg Tablet) 50 mg PO QID PRN PRN Reason: Anxiety Last Admin: 01/16/23 11:40 Dose: 50 mg Magnesium Hydroxide (Milk Of Magnesia 30 Ml Oral.Susp) 30 ml PO DAILY PRN PRN Reason: Constipation Multivitamins/Vitamin C (Multivitamin Tablet) 1 tab PO DAILY [facility] Last Admin: 01/16/23 08:41 Dose: 1 tab Oxcarbazepine (Oxcarbazepine 150 Mg Tablet) 150 mg PO DAILY [facility] Last Admin: 01/16/23 08:41 Dose: 150 mg Oxcarbazepine (Oxcarbazepine 300 Mg Tablet) 300 mg PO BEDTIME [facility] Last Admin: 01/15/23 21:40 Dose: 300 mg Risperidone 3 mg/ Risperidone (2 mg) 5 mg PO BEDTIME [facility] Last Admin: 01/15/23 21:40 Dose: 5 mg Trazodone HCl (Trazodone Hcl 50 Mg Tablet) 50 mg PO BEDTIME MRX1 PRN PRN Reason: Insomnia Allergies Allergies Allergy/AdvReac Type Severity Reaction Status Date / Time No Known Drug Allergies Allergy Unknown Verified 01/08/23 16:36 Assessment & Plan Assessment & Plan (1) Bipolar 1 disorder, depressed: Status: Acute Code(s): F31.9 - Bipolar disorder, unspecified Plan 42 year old female with a history of bipolar disorder presents with increased depression and internal aggitation, anxiety and insomnia. She was recently discharged from [facility] and has been non complient with her medications. She appears internally pre-occcupied. She agrees to restart her medications. Plan: 1. Admit to M3 for safety and stabilization on a CV. 2. restart Risperidone 4 mg at bedtime. 3. Collateral information 4. Group and milieu therapy 5. Discharge planning 01/10: Continue current treatment plan. 01/11: Continue current regimen and plans. Add Seroquel 25 mg t.i.d. p.r.n. 01/12: Patient presents guarded and irritable; perseverative about her coloring markers. Patient stated, I hate having to ask for everything. I'm stressed out. I want a 1:1 so I can use my markers . T/W explained the reasons someone is placed on a 1:1 and her wanting markers would not be a reason. She was given the option to use her markers in the common area. Pt stated, I don't want to be around positive people. I want to avoid the negative energy. I don't want to hear people talk about suicide . Patient presents with some paranoid thought content. Pt stated, I don't like taking pills at night because, every time I'm in the hospital I wake up with a bloody mouth and feel like someone beat me up . Patient was informed that she would be kept safe while on the unit and staff would be conducting safety checks on patients throughout the night. Patient did not acknowledge T/W and would continue to bring the conversation back to her coloring markers. When asked if she was feeling suicidal; pt stated, I don't know. This is how I have to act to get what I want now . Start: Seroquel 50mg PO BID 01/13: Patient continues to present guarded and irritable; perseverative about her coloring markers. Patient stated, I'm still aggravated about having to ask for everything. I feel like it's a watching game here and I don't like it . Patient continues to presents with some delusional thought content. She reports not knowing if I have auditory or visual hallucinations ; Pt was educated on perceptual disturbances. denies SI/HI. Pt stated, I don't know if the Seroquel did anything ; pt reports she is willing to increase dosage tomorrow. Increased Risperidal to 5mg PO bedtime. 01/14: Patient continues to present guarded and irritable; perseverative about her coloring markers. Patient stated, I still don't understand why I have to ask for everything. I don't want to go to groups and be around other people. I want a 1:1 to be able to use my markers in my room . Patient reports she is willing to try a mood stabilizer because I'm tired of feeling angry and anxious and I don't want to drag out the treatment process . Pt reports she did not like how the Seroquel made her feel. DC Seroquel. Pt refused labs, stated, I don't like needles and I'm not getting labs done . Start: Trileptal 150mg PO daiy and Trileptal 300mg PO bedtime. 01/15: Patient continues to present guarded and irritable; perseverative about her coloring markers. Room search was conducted by staff d/t patient refusing to return her markers that contained a metal tip; marker was found hidden in patients shoe. Patient expressed frustrated regarding markers and room search. Today, pt signed 3 day notice. Observed attending art group, keeping to self. Patient stated, I took the medication. I want to leave but I don't want to dent the process. I want to see how the new mediation goes . Pt denies SI/HI/VH/AH. 01/16: increase hydroxyzine to 75mg prn tid Reason for continued inpatient stay Substantial Risk for: inability to function Time Spent With Patient Time: Total time managing care of this patient today ____ minutes.
[2023-01-16 22:00] VITALS: BP 91/54; PULSE 99; RESP 18; TEMP 37.2; O2SAT 97
[2023-01-16] MEDS: RISPERIDONE 5 MG PO (22:03)
[2023-01-16] MEDS: OXcarbazepine 300 MG TABLET PO (22:04)
[2023-01-17] MEDS: OXcarbazepine 150 MG TABLET PO (09:54)
[2023-01-17] MEDS: Folic Acid 1 MG TABLET PO (09:54)
[2023-01-17] MEDS: Acamprosate Calcium 333 MG TABLET.DR 666 MG PO ×2 (09:54→16:06)
[2023-01-17] MEDS: Multivitamin TABLET 1 TAB PO (09:54)
--- NOTE | 2023-01-17 15:07 | P.PNPSI_ITS ---
Subjective Subjective Date of Service: 01/17/23 Reason For Visit: Bipolar disorder Interim History: Less irritable my mood is more consistent and feels trileptal is helpful, but maybe sedate. Discussed either lowering trileptal today or waiting one more day- preferred to wait one more day. Sleep ok. No SI or psychosis. Feels reasonably supported. Medication Compliance: Yes Side effects from medications: No Attending Groups: Intermittent Review of Systems Acute medical concerns: No Review of Systems Review of Systems Yes all other systems are reviewed and are negative Mental Status Exam Mental Status Exam Narrative: Pt is alert and oriented; behavior is guarded. Not irritable dressed in casual attire; mood is described as less anxious ; eye contact appropriate; Speech is normal rate, volume and prosody and not pressured; no psychomotor agitation/retardation present; thought process is organized and goal directed; Thought content is on tx; otherwise pertinent to relevant topics and without any delusional content, paranoid ideations or grandiosity; denies SI/HI. There is no evidence of perceptual disturbance. Patients insight and judgment are poor but improving. Diagnostics Vital Signs (24Hr): Vital Signs - 24 hr 01/16/23 22:00 Temperature 99.0 F Pulse Rate 99 Respiratory Rate 18 Blood Pressure 91/54 L Pulse Oximetry 97 Oxygen Delivery Method Room Air BMI result Body Mass Index 28.0 Medications Medications Current Medications Acamprosate (Acamprosate Calcium 333 Mg Tablet.) 666 mg PO TID [facility] Last Admin: 01/17/23 09:54 Dose: 666 mg Acetaminophen (Acetaminophen 325 Mg Tablet) 650 mg PO Q6H PRN PRN Reason: Headache/Pain Mild Scale (1-3) Al Hydroxide/Mg Hydroxide (Magnesium Hydrox/Alum Hydrox 30 Ml Oral.Susp) 30 ml PO Q6H PRN PRN Reason: Heartburn/Nausea Folic Acid (Folic Acid 1 Mg Tablet) 1 mg PO DAILY [facility] Last Admin: 01/17/23 09:54 Dose: 1 mg Hydroxyzine HCl (Hydroxyzine Hcl 25 Mg Tablet) 75 mg PO TID PRN PRN Reason: Anxiety Magnesium Hydroxide (Milk Of Magnesia 30 Ml Oral.Susp) 30 ml PO DAILY PRN PRN Reason: Constipation Multivitamins/Vitamin C (Multivitamin Tablet) 1 tab PO DAILY [facility] Last Admin: 01/17/23 09:54 Dose: 1 tab Oxcarbazepine (Oxcarbazepine 150 Mg Tablet) 150 mg PO DAILY [facility] Last Admin: 01/17/23 09:54 Dose: 150 mg Oxcarbazepine (Oxcarbazepine 300 Mg Tablet) 300 mg PO BEDTIME [facility] Last Admin: 01/16/23 22:04 Dose: 300 mg Risperidone 3 mg/ Risperidone (2 mg) 5 mg PO BEDTIME [facility] Last Admin: 01/16/23 22:03 Dose: 5 mg Trazodone HCl (Trazodone Hcl 50 Mg Tablet) 50 mg PO BEDTIME MRX1 PRN PRN Reason: Insomnia Allergies Allergies Allergy/AdvReac Type Severity Reaction Status Date / Time No Known Drug Allergies Allergy Unknown Verified 01/08/23 16:36 Assessment & Plan Assessment & Plan (1) Bipolar 1 disorder, depressed: Status: Acute Code(s): F31.9 - Bipolar disorder, unspecified Plan 42 year old female with a history of bipolar disorder presents with increased depression and internal aggitation, anxiety and insomnia. She was recently discharged from [facility] and has been non complient with her medications. She appears internally pre-occcupied. She agrees to restart her medications. Plan: 1. Admit to M3 for safety and stabilization on a CV. 2. restart Risperidone 4 mg at bedtime. 3. Collateral information 4. Group and milieu therapy 5. Discharge planning 01/10: Continue current treatment plan. 01/11: Continue current regimen and plans. Add Seroquel 25 mg t.i.d. p.r.n. 01/12: Patient presents guarded and irritable; perseverative about her coloring markers. Patient stated, I hate having to ask for everything. I'm stressed out. I want a 1:1 so I can use my markers . T/W explained the reasons someone is placed on a 1:1 and her wanting markers would not be a reason. She was given the option to use her markers in the common area. Pt stated, I don't want to be around positive people. I want to avoid the negative energy. I don't want to hear people talk about suicide . Patient presents with some paranoid thought content. Pt stated, I don't like taking pills at night because, every time I'm in the hospital I wake up with a bloody mouth and feel like someone beat me up . Patient was informed that she would be kept safe while on the unit and staff wou ld be conducting safety checks on patients throughout the night. Patient did not acknowledge T/W and would continue to bring the conversation back to her coloring markers. When asked if she was feeling suicidal; pt stated, I don't know. This is how I have to act to get what I want now . Start: Seroquel 50mg PO BID 01/13: Patient continues to present guarded and irritable; perseverative about her coloring markers. Patient stated, I'm still aggravated about having to ask for everything. I feel like it's a watching game here and I don't like it . Patient continues to presents with some delusional thought content. She reports not knowing if I have auditory or visual hallucinations ; Pt was educated on perceptual disturbances. denies SI/HI. Pt stated, I don't know if the Seroquel did anything ; pt reports she is willing to increase dosage tomorrow. Increased Risperidal to 5mg PO bedtime. 01/14: Patient continues to present guarded and irritable; perseverative about her coloring markers. Patient stated, I still don't understand why I have to ask for everything. I don't want to go to groups and be around other people. I want a 1:1 to be able to use my markers in my room . Patient reports she is willing to try a mood stabilizer because I'm tired of feeling angry and anxious and I don't want to drag out the treatment process . Pt reports she did not like how the Seroquel made her feel. DC Seroquel. Pt refused labs, stated, I don't like needles and I'm not getting labs done . Start: Trileptal 150mg PO daiy and Trileptal 300mg PO bedtime. 01/15: Patient continues to present guarded and irritable; perseverative about her coloring markers. Room search was conducted by staff d/t patient refusing to return her markers that contained a metal tip; marker was found hidden in pat ients shoe. Patient expressed frustrated regarding markers and room search. Today, pt signed 3 day notice. Observed attending art group, keeping to self. Patient stated, I took the medication. I want to leave but I don't want to dent the process. I want to see how the new mediation goes . Pt denies SI/HI/VH/AH. 01/16: increase hydroxyzine to 75mg prn tid 01/17: no changes- review trileptal dosing 01/18 Reason for continued inpatient stay Substantial Risk for: inability to function Time Spent With Patient Time: Total time managing care of this patient today ____ minutes.
[2023-01-17] MEDS: hydrOXYzine HCL 25 MG TABLET 75 MG PO (16:06)
[2023-01-17] MEDS: RISPERIDONE 5 MG PO (22:02)
[2023-01-17] MEDS: OXcarbazepine 300 MG TABLET PO (22:02)
[2023-01-18 08:41] VITALS: BP 124/82; PULSE 88; RESP 16; TEMP 36.6; O2SAT 98
[2023-01-18] MEDS: OXcarbazepine 150 MG TABLET PO (09:53)
[2023-01-18] MEDS: Multivitamin TABLET 1 TAB PO (09:53)
[2023-01-18] MEDS: Acamprosate Calcium 333 MG TABLET.DR 666 MG PO (09:53)
[2023-01-18] MEDS: Folic Acid 1 MG TABLET PO (09:53)
[2023-01-18] MEDS: hydrOXYzine HCL 25 MG TABLET 75 MG PO ×2 (10:41→16:08)
--- NOTE | 2023-01-18 16:04 | HO.PSYCHPN ---
Subjective Subjective Date of Service: 01/18/23 Reason For Visit: Bipolar disorder Interim History: focused on obtaining adderall script. pt reports it helps her organize her life and if she discharges without it she is going to relapse because her life outside the hospital is hectic. circular conversation for about 15 minutes wherein MD explained the multitude of reasons why he will not be prescribing pt stimulants. pt had no other questions or requests for MD. per staff, concerned new medicine is making her tired. refused VS and some medications. resting, pleasant interactions with nurses. not taking full dosing of campral. Mental Status Exam Mental Status Exam Narrative: Pt is alert and oriented; behavior is guarded. Not irritable dressed in casual attire; mood is described as less anxious ; eye contact appropriate; Speech is normal rate, volume and prosody and not pressured; no psychomotor agitation/retardation present; thought process is organized and goal directed; Thought content is on tx; otherwise pertinent to relevant topics and without any delusional content, paranoid ideations or grandiosity; denies SI/HI. There is no evidence of perceptual disturbance. Patients insight and judgment are poor but improving. Diagnostics Vital Signs (24Hr): Vital Signs - 24 hr 01/18/23 08:41 Temperature 97.9 F Pulse Rate 88 Respiratory Rate 16 Blood Pressure 124/82 Pulse Oximetry 98 Oxygen Delivery Method Room Air BMI result Body Mass Index 28.0 Medications Medications Current Medications Acamprosate (Acamprosate Calcium 333 Mg Tablet.) 666 mg PO TID [facility] Last Admin: 01/18/23 09:53 Dose: 333 mg Acetaminophen (Acetaminophen 325 Mg Tablet) 650 mg PO Q6H PRN PRN Reason: Headache/Pain Mild Scale (1-3) Al Hydroxide/Mg Hydroxide (Magnesium Hydrox/Alum Hydrox 30 Ml Oral.Susp) 30 ml PO Q6H PRN PRN Reason: Heartburn/Nausea Folic Acid (Folic Acid 1 Mg Tablet) 1 mg PO DAILY [facility] Last Admin: 01/18/23 09:53 Dose: 1 mg Hydroxyzine HCl (Hydroxyzine Hcl 25 Mg Tablet) 75 mg PO TID PRN PRN Reason: Anxiety Last Admin: 01/18/23 10:41 Dose: 75 mg Magnesium Hydroxide (Milk Of Magnesia 30 Ml Oral.Susp) 30 ml PO DAILY PRN PRN Reason: Constipation Multivitamins/Vitamin C (Multivitamin Tablet) 1 tab PO DAILY [facility] Last Admin: 01/18/23 09:53 Dose: 1 tab Oxcarbazepine (Oxcarbazepine 150 Mg Tablet) 150 mg PO DAILY [facility] Last Admin: 01/18/23 09:53 Dose: 150 mg Oxcarbazepine (Oxcarbazepine 300 Mg Tablet) 300 mg PO BEDTIME [facility] Last Admin: 01/17/23 22:02 Dose: 300 mg Risperidone 3 mg/ Risperidone (2 mg) 5 mg PO BEDTIME [facility] Last Admin: 01/17/23 22:02 Dose: 5 mg Trazodone HCl (Trazodone Hcl 50 Mg Tablet) 50 mg PO BEDTIME MRX1 PRN PRN Reason: Insomnia Allergies Allergies Allergy/AdvReac Type Severity Reaction Status Date / Time No Known Drug Allergies Allergy Unknown Verified 01/08/23 16:36 Assessment & Plan Assessment & Plan (1) Bipolar 1 disorder, depressed: Status: Acute Code(s): F31.9 - Bipolar disorder, unspecified Plan 42 year old female with a history of bipolar disorder presents with increased depression and internal aggitation, anxiety and insomnia. She was recently discharged from [facility] and has been non complient with her medications. She appears internally pre-occcupied. She agrees to restart her medications. Plan: 1. Admit to M3 for safety and stabilization on a CV. 2. restart Risperidone 4 mg at bedtime. 3. Collateral information 4. Group and milieu therapy 5. Discharge planning 01/10: Continue current treatment plan. 01/11: Continue current regimen and plans. Add Seroquel 25 mg t.i.d. p.r.n. 01/12: Patient presents guarded and irritable; perseverative about her coloring markers. Patient stated, I hate having to ask for everything. I'm stressed out. I want a 1:1 so I can use my markers . T/W explained the reasons someone is placed on a 1:1 and her wanting markers would not be a reason. She was given the option to use her markers in the common area. Pt stated, I don't want to be around positive people. I want to avoid the negative energy. I don't want to hear people talk about suicide . Patient presents with some paranoid thought content. Pt stated, I don't like taking pills at night because, every time I'm in the hospital I wake up with a bloody mouth and feel like someone beat me up . Patient was informed that she would be kept safe while on the unit and staff would be conducting safety checks on patients throughout the night. Patient did not acknowledge T/W and would continue to bring the conversation back to her coloring markers. When asked if she was feeling suicidal; pt stated, I don't know. This is how I have to act to get what I want now . Start: Seroquel 50mg PO BID 01/13: Patient continues to present guarded and irritable; perseverative about her coloring markers. Patient stated, I'm still aggravated about having to ask for everything. I feel like it's a watching game here and I don't like it . Patient continues to presents with some delusional thought content. She reports not knowing if I have auditory or visual hallucinations ; Pt was educated on perceptual disturbances. denies SI/HI. Pt stated, I don't know if the Seroquel did anything ; pt reports she is willing to increase dosage tomorrow. Increased Risperidal to 5mg PO bedtime. 01/14: Patient continues to present guarded and irritable; perseverative about her coloring markers. Patient stated, I still don't understand why I have to ask for everything. I don't want to go to groups and be around other people. I want a 1:1 to be able to use my markers in my room . Patient reports she is willing to try a mood stabilizer because I'm tired of feeling angry and anxious and I don't want to drag out the treatment process . Pt reports she did not like how the Seroquel made her feel. DC Seroquel. Pt refused labs, stated, I don't like needles and I'm not getting labs done . Start: Trileptal 150mg PO daiy and Trileptal 300mg PO bedtime. 01/15: Patient continues to present guarded and irritable; perseverative about her coloring markers. Room search was conducted by staff d/t patient refusing to return her markers that contained a metal tip; marker was found hidden in patients shoe. Patient expressed frustrated regarding markers and room search. Today, pt signed 3 day notice. Observed attending art group, keeping to self. Patient stated, I took the medication. I want to leave but I don't want to dent the process. I want to see how the new mediation goes . Pt denies SI/HI/VH/AH. 01/16: increase hydroxyzine to 75mg prn tid 01/17: no changes- review trileptal dosing 01/18 01/18: focused on obtaining adderall, which was declined. no other requests. continue current mgmt. Reason for continued inpatient stay Substantial Risk for: rapid decompensation Time Spent With Patient Time: Total time managing care of this patient today _35___ minutes.
[2023-01-18] MEDS: RISPERIDONE 5 MG PO (20:18)
[2023-01-18] MEDS: OXcarbazepine 300 MG TABLET PO (20:19)
--- NOTE | 2023-01-19 09:27 | P.PNPSI_ITS ---
Subjective Subjective Date of Service: 01/19/23 Reason For Visit: Bipolar disorder Subjective Notes: 3 Day Interim History: Reviewed in team and . Patient presents pleasant, calm and cooperative. Patient stated, I'm feeling fine. I'm not feeling anxious or irritable anymore . Patient reports she plans on going home and following up with outpatient providers. Denies SI/HI/VH/AH. Patient is on 3 day which is due tomorrow. Medication Compliance: Yes Side effects from medications: No Attending Groups: Intermittent Review of Systems Constitutional: Reports as per HPI Eyes: Reports as per HPI Reports as per HPI Cardiovascular: Reports as per HPI Respiratory: Reports as per HPI Gastrointestinal: Reports as per HPI Genitourinary: Reports as per HPI Musculoskeletal: Reports as per HPI Skin/Breast: Reports as per HPI Reports as per HPI Psychiatric: Reports as per HPI Endocrine: Reports as per HPI Hematologic/Lymphatic: Reports as per HPI Allergic/Immunologic: Reports as per HPI Mental Status Exam Mental Status Exam Narrative: Pt is alert and oriented; behavior is cooperative, friendly and calm; dressed in casual attire; mood is described as good ; eye contact appropriate; Speech is normal rate, volume and prosody and not pressured; no psychomotor agitation/retardation present; thought process is organized and goal directed; Thought content is on tx; otherwise pertinent to relevant topics and without any delusional content, paranoid ideations or grandiosity; denies SI/HI. There is no evidence of perceptual disturbance. Patients insight and judgment are fair. Diagnostics Vital Signs (24Hr): BMI result Body Mass Index 28.0 Medications Medications Current Medications Acamprosate (Acamprosate Calcium 333 Mg Tablet.) 666 mg PO TID [facility] Last Admin: 01/18/23 20:22 Dose: Not Given Acetaminophen (Acetaminophen 325 Mg Tablet) 650 mg PO Q6H PRN PRN Reason: Headache/Pain Mild Scale (1-3) Al Hydroxide/Mg Hydroxide (Magnesium Hydrox/Alum Hydrox 30 Ml Oral.Susp) 30 ml PO Q6H PRN PRN Reason: Heartburn/Nausea Folic Acid (Folic Acid 1 Mg Tablet) 1 mg PO DAILY [facility] Last Admin: 01/18/23 09:53 Dose: 1 mg Hydroxyzine HCl (Hydroxyzine Hcl 25 Mg Tablet) 75 mg PO TID PRN PRN Reason: Anxiety Last Admin: 01/18/23 16:08 Dose: 75 mg Magnesium Hydroxide (Milk Of Magnesia 30 Ml Oral.Susp) 30 ml PO DAILY PRN PRN Reason: Constipation Multivitamins/Vitamin C (Multivitamin Tablet) 1 tab PO DAILY [facility] Last Admin: 01/18/23 09:53 Dose: 1 tab Oxcarbazepine (Oxcarbazepine 150 Mg Tablet) 150 mg PO DAILY [facility] Last Admin: 01/18/23 09:53 Dose: 150 mg Oxcarbazepine (Oxcarbazepine 300 Mg Tablet) 300 mg PO BEDTIME [facility] Last Admin: 01/18/23 20:19 Dose: 300 mg Risperidone 3 mg/ Risperidone (2 mg) 5 mg PO BEDTIME [facility] Last Admin: 01/18/23 20:18 Dose: 5 mg Trazodone HCl (Trazodone Hcl 50 Mg Tablet) 50 mg PO BEDTIME MRX1 PRN PRN Reason: Insomnia Allergies Allergies Allergy/AdvReac Type Severity Reaction Status Date / Time No Known Drug Allergies Allergy Unknown Verified 01/08/23 16:36 Assessment & Plan Assessment & Plan (1) Bipolar 1 disorder, depressed: Status: Acute Code(s): F31.9 - Bipolar disorder, unspecified Plan 42 year old female with a history of bipolar disorder presents with increased depression and internal aggitation, anxiety and insomnia. She was recently discharged from [facility] and has been non complient with her medications. She appears internally pre-occcupied. She agrees to restart her medications. Plan: 1. Admit to M3 for safety and stabilization on a CV. 2. restart Risperidone 4 mg at bedtime. 3. Collateral information 4. Group and milieu therapy 5. Discharge planning 01/10: Continue current treatment plan. 01/11: Continue current regimen and plans. Add Seroquel 25 mg t.i.d. p.r.n. 01/12: Patient presents guarded and irritable; perseverative about her coloring markers. Patient stated, I hate having to ask for everything. I'm stressed out. I want a 1:1 so I can use my markers . T/W explained the reasons someone is placed on a 1:1 and her wanting markers would not be a reason. She was given the option to use her markers in the common area. Pt stated, I don't want to be around positive people. I want to avoid the negative energy. I don't want to hear people talk about suicide . Patient presents with some paranoid thought content. Pt stated, I don't like taking pills at night because, every time I'm in the hospital I wake up with a bloody mouth and feel like someone beat me up . Patient was informed that she would be kept safe while on the unit and staff would be conducting safety checks on patients throughout the night. Patient did not acknowledge T/W and would continue to bring the conversation back to her coloring markers. When asked if she was feeling suicidal; pt stated, I don't know. This is how I have to act to get what I want now . Start: Seroquel 50mg PO BID 01/13: Patient continues to present guarded and irritable; perseverative about her coloring markers. Patient stated, I'm still aggravated about having to ask for everything. I feel like it's a watching game here and I don't like it . Patient continues to presents with some delusional thought content. She reports not knowing if I have auditory or visual hallucinations ; Pt was educated on perceptual disturbances. denies SI/HI. Pt stated, I don't know if the Seroquel did anything ; pt reports she is willing to increase dosage tomorrow. Increased Risperidal to 5mg PO bedtime. 01/14: Patient continues to present guarded and irritable; perseverative about her coloring markers. Patient stated, I still don't understand why I have to ask for everything. I don't want to go to groups and be around other people. I want a 1:1 to be able to use my markers in my room . Patient reports she is willing to try a mood stabilizer because I'm tired of feeling angry and anxious and I don't want to drag out the treatment process . Pt reports she did not like how the Seroquel made her feel. DC Seroquel. Pt refused labs, stated, I don't like needles and I'm not getting labs done . Start: Trileptal 150mg PO daiy and Trileptal 300mg PO bedtime. 01/15: Patient continues to present guarded and irritable; perseverative about her coloring markers. Room search was conducted by staff d/t patient refusing to return her markers that contained a metal tip; marker was found hidden in patients shoe. Patient expressed frustrated regarding markers and room search. Today, pt signed 3 day notice. Observed attending art group, keeping to self. Patient stated, I took the medication. I want to leave but I don't want to dent the process. I want to see how the new mediation goes . Pt denies SI/HI/VH/AH. 01/16: increase hydroxyzine to 75mg prn tid 01/17: no changes- review trileptal dosing 01/18 01/18: focused on obtaining adderall, which was declined. no other requests. continue current mgmt. 01/19: Patient presents pleasant, calm and cooperative. Patient stated, I'm feeling fine. I'm not feeling anxious or irritable anymore . Patient reports she plans on going home and following up with outpatient providers. Denies SI/HI/VH/AH. Patient is on 3 day which is due tomorrow. Continue current tx plan. Patient educated on: diagnosis, medication risk/benefits and therapeutic strategies Informed Consent: understands Reason for continued inpatient stay Substantial Risk for: med/psych decompensation Time Spent With Patient Time: Total time managing care of this patient today _30___ minutes.
[2023-01-19 09:30] VITALS: BP 145/91; PULSE 91; RESP 18; TEMP 36.5; O2SAT 100
[2023-01-19] MEDS: Acamprosate Calcium 333 MG TABLET.DR 666 MG PO ×2 (09:33→14:20)
[2023-01-19] MEDS: OXcarbazepine 150 MG TABLET PO (09:33)
[2023-01-19] MEDS: Multivitamin TABLET 1 TAB PO (09:33)
[2023-01-19] MEDS: Folic Acid 1 MG TABLET PO (09:33)
[2023-01-19] MEDS: hydrOXYzine HCL 25 MG TABLET 75 MG PO ×2 (09:34→14:20)
[2023-01-19] MEDS: OXcarbazepine 300 MG TABLET PO (20:36)
[2023-01-19] MEDS: RISPERIDONE 5 MG PO (20:37)
[2023-01-20] MEDS: hydrOXYzine HCL 25 MG TABLET 75 MG PO (06:05)
[2023-01-20] MEDS: Acamprosate Calcium 333 MG TABLET.DR 666 MG PO (08:33)
[2023-01-20] MEDS: Multivitamin TABLET 1 TAB PO (08:34)
[2023-01-20] MEDS: Folic Acid 1 MG TABLET PO (08:34)
[2023-01-20] MEDS: OXcarbazepine 150 MG TABLET PO (08:34)
[2023-01-20 08:35] VITALS: BP 125/84; PULSE 86; RESP 16; TEMP 36.2; O2SAT 100
--- NOTE | 2023-01-20 09:40 | P.DS_ITS ---
DS: Providers Provider Date of Service: 01/20/23 Date of admission: 01/08/23 15:58 Date of discharge: 01/20/23 Primary care physician: Ankita Samano MD Attending physician on admission: Juan Miguel Walker Consults: 01/08/23 17:21 Consult to Hospitalist Routine Comment: Consulting Provider: Hospitalist Reason For Exam: outside admit from [facility] Attending physician on discharge: Pj Mccormack Discharging clinician: Maite Acosta DS: Diagnosis Discharge Diagnosis (1) Bipolar 1 disorder, depressed: Status: Acute DS: Medications Discharge Medications Home Medications: Previous Rx's Medication Instructions Recorded acamprosate 333 mg tablet,delayed 666 mg (2 x 333 mg) PO TID 30 days 01/20/23 release #180 tabs folic acid 1 mg tablet 1 mg PO DAILY 30 days #30 tabs 01/20/23 hydroxyzine HCl 25 mg tablet 75 mg (3 x 25 mg) PO TID PRN 01/20/23 Anxiety 7 days #63 tabs multivitamin (Daily-Kristopher tablet) 1 tab PO DAILY 30 days #30 tabs 01/20/23 oxcarbazepine 150 mg tablet 150 mg PO DAILY 30 days #30 tabs 01/20/23 oxcarbazepine 300 mg tablet 300 mg PO BEDTIME 30 days #30 tabs 01/20/23 risperidone 1 mg tablet 5 mg (5 x 1 mg) PO BEDTIME 14 days 01/20/23 #70 tabs Mental Status Exam Mental Status Exam Narrative: Pt is alert and oriented; behavior is cooperative, friendly and calm; dressed in casual attire; mood is described as good and affect congruent; eye contact appropriate; Speech is normal rate, volume and prosody and not pressured; no psychomotor agitation/retardation present; thought process is organized and goal directed; Thought content is on tx; otherwise pertinent to relevant topics and without any delusional content, paranoid ideations or grandiosity; denies SI/HI. There is no evidence of perceptual disturbance. Patients insight and judgment are fair. DS: Summary Hospital Course Hospital Course: Patient is a 42 year old Female with a past history of bipolar disorder who is transferred from [facility]. She presented there with increased anxiety, inability to sleep and poor concentration. She was recently discharged from [facility]. She was not taking her perscribed Risperidone after discharge. Patient reports that Risperidone was helpful but unable to say why she stopped taking it. Patient says that i wasn't sleeping, I am aggitated because I cannot figure myself out. My life has been taking me on different paths and journeys. Patient appears pre-occupied during the interview and seems to be responding to internal stimuli. She is vauge and guarded. She reports poor sleep, overthinking, decrease energy, and paranoia. She reports her mood is agitated. She denies suicidal ideation. According to the crisis report, her sister said that she has episodes of catatonia. During hospital course, pt was restarted on her home medications. Add Seroquel 25 mg t.i.d. p.r.n. Patient presents guarded and irritable; perseverative about her coloring markers. Patient stated, I hate having to ask for everything. I'm stressed out. I want a 1:1 so I can use my markers . T/W explained the reasons someone is placed on a 1:1 and her wanting markers would not be a reason. She was given the option to use her markers in the common area. Pt stated, I don't want to be around positive people. I want to avoid the negative energy. I don't want to hear people talk about suicide . Patient presents with some paranoid thought content. Pt stated, I don't like taking pills at night because, every time I'm in the hospital I wake up with a bloody mouth and feel like someone beat me up . Patient was informed that she would be kept safe while on the unit and staff would be conducting safety checks on patients throughout the night. Patient did not acknowledge T/W and would continue to bring the conversation back to her coloring markers. When asked if she was feeling suicidal; pt stated, I don't know. This is how I have to act to get what I want now . Start: Seroquel 50mg PO BID Patient continues to presents with some delusional thought content. She reports not knowing if I have auditory or visual hallucinations ; Pt was educated on perceptual disturbances. denies SI/HI. Pt stated, I don't know if the Seroquel did anything ; pt reports she is willing to increase dosage tomorrow. Increased Risperidal to 5mg PO bedtime. Patient continues to present guarded and irritable; perseverative about her coloring markers. Patient stated, I still don't understand why I have to ask for everything. I don't want to go to groups and be around other people. I want a 1:1 to be able to use my markers in my room . Patient reports she is willing to try a mood stabilizer because I'm tired of feeling angry and anxious and I don't want to drag out the treatment process . Pt reports she did not like how the Seroquel made her feel. DC Seroquel. Pt refused labs, stated, I don't like needles and I'm not getting labs done . Start: Trileptal 150mg PO daiy and Trileptal 300mg PO bedtime. Risks/benefits discussed. Room search was conducted by staff d/t patient refusing to return her markers that contained a metal tip; marker was found hidden in patients shoe. Patient expressed frustrated regarding markers and room search. Today, pt signed 3 day notice. Observed attending art group, keeping to self. Patient stated, I took the medication. I want to leave but I don't want to dent the process. I want to see how the new mediation goes . Pt denies SI/HI/VH/AH. Increased hydroxyzine to 75mg prn tid Focused on obtaining adderall, which was declined. Patient presents pleasant, calm and cooperative. Patient stated, I'm feeling fine. I'm not feeling anxious or irritable anymore . Patient reports she plans on going home and following up with outpatient providers. Observed being social with peers and staff. Joking and laughing with T/W. Denies SI/HI/VH/AH. Patient is on 3 day which is due on 01/20/2023. Patient plans on returning home and following up with outpatient providers. Time spent discussing smoking cessation with patient: 3 to 10 minutes Status at Discharge Cognitive/behavioral status at discharge: Patient was interviewed prior to discharge and found to be fully oriented and without any SI or HI. Patient has insight and demonstrates good judgment in terms of wanting to pursue treatment. Patient is not in imminent risk of harm to self or others and has a safety plan that includes presenting to the closest ER or calling 911 if feeling unsafe. Patient has been observed closely by nursing and unit staff throughout admission; patient has not engaged in any behaviors that suggest dangerousness to self or others and has demonstrated appropriate behaviors and impulse control. Functional status at discharge: independent ambulation Overall status at discharge: patient is back to baseline Time Spent with Patient Time attestation: Total time managing care of this patient today _30___ minutes. Time spent: Less than 30 minutes Discharge Plan Discharge Anticipated Discharge Date/Time: 01/20/23 11:00 Patient Disposition: Home, Self-Care Discharge Diagnosis: Bipolar d/o Referrals: [facility] [Other] - 02/23/23 8:00 am ([facility] admission 02/23/23 at 8am in person ) Ankita Samano MD [Primary Care Provider] - 1 Week Discharge Medications: New oxcarbazepine 150 mg Tablet 150 mg PO DAILY 30 Days Qty: 30 0RF oxcarbazepine 300 mg Tablet 300 mg PO BEDTIME 30 Days Qty: 30 0RF risperidone 1 mg Tablet 5 mg PO BEDTIME 14 Days Qty: 70 1RF multivitamin [Daily-Kristopher] Tablet 1 tab PO DAILY 30 Days Qty: 30 0RF hydroxyzine HCl 25 mg Tablet 75 mg PO TID PRN (Reason: Anxiety) 7 Days Qty: 63 1RF Continued folic acid 1 mg tablet 1 mg PO DAILY 30 Days Qty: 30 0RF acamprosate 333 mg tablet,delayed release (DR/EC) 666 mg PO TID 30 Days Qty: 180 0RF Discontinued trazodone 50 mg tablet 50 mg PO BEDTIME risperidone 4 mg tablet 4 mg PO BEDTIME Discharge Orders: Discharge Order (Routine); Ordered 01/20/23 Ordered By: Maite Acosta Diet: Regular diet Activity on Discharge: As tolerated Stand Alone Forms: Patient Portal Discharge page, Community Support Care Plan Goals: Maintain mood and safe behaviors Take medications as prescribed Practice coping skills Continue with outpatient providers and reach out to them as needed Health Concerns: Mood stability and behaviors Plan of Treatment: Follow up with your PCP, psychiatric provider and other outpatient providers regarding above concerns Take medications as prescribed Assessment: Patient was interviewed prior to discharge and found to be fully oriented and without any SI or HI. Patient has insight and demonstrates good judgment in terms of wanting to pursue treatment. Patient is not in imminent risk of harm to self or others and has a safety plan that includes presenting to the closest ER or calling 911 if feeling unsafe. Patient has been observed closely by nursing and unit staff throughout admission; patient has not engaged in any behaviors that suggest dangerousness to self or others and has demonstrated appropriate behaviors and impulse control. Discharge Date/Time: 01/20/23 11:00
== END 2023-01-20 11:00 | disposition home or self-care (01) | DRG 753 ==
PROVIDERS: Admitting Provider Psychiatry & Neurology Psychiatry; PCP Internal Medicine; Responsible Provider Registered Nurse; Visit Provider Psychiatry & Neurology Psychiatry
DX: F31.9 Bipolar disorder, unspecified (principal); K70.30 Alcoholic cirrhosis of liver without ascites; F10.20 Alcohol dependence, uncomplicated; Z87.891 Personal history of nicotine dependence; Z79.899 Other long term (current) drug therapy

== ENCOUNTER → 2023-01-08 15:58 | Outpatient (BNV) | payer OTHER, SELFPAY | PROVIDERS: Admitting Provider Psychiatry & Neurology Psychiatry; PCP Internal Medicine; Visit Provider Psychiatry & Neurology Psychiatry | DX: F31.4 Bipolar disorder, current episode depressed, severe, without psychotic features (principal) | CPT/HCPCS: 99231; 99232 ==

== ENCOUNTER → 2023-01-08 15:58 | Outpatient (BNV) | payer OTHER, SELFPAY | PROVIDERS: Admitting Provider Psychiatry & Neurology Psychiatry; PCP Internal Medicine; Visit Provider Physician Assistant | DX: F31.9 Bipolar disorder, unspecified (principal); K70.30 Alcoholic cirrhosis of liver without ascites; F10.20 Alcohol dependence, uncomplicated | CPT/HCPCS: 99222 ==

== ENCOUNTER → 2023-01-08 15:58 | Outpatient (BNV) | payer OTHER, SELFPAY | PROVIDERS: Admitting Provider Psychiatry & Neurology Psychiatry; PCP Internal Medicine; Responsible Provider Registered Nurse; Visit Provider Psychiatry & Neurology Psychiatry | DX: F31.4 Bipolar disorder, current episode depressed, severe, without psychotic features (principal) | CPT/HCPCS: 99231; 99232 ==

== ENCOUNTER 2023-03-05 09:30 | Outpatient (RCR) | payer OTHER, SELFPAY ==
[2023-02-24 10:36] VITALS: BP 92/62; PULSE 76; TEMP 36.4
--- NOTE | 2023-02-24 11:28 | PC.ADMIT ---
Katerine is a 42 year old female who was referred to [facility] by [facility] inpatient behavioral health unit where she was admitted d/t mood instability. Per records patient was initially at [facility] and was transferred to [facility] [place]. She has a history of Bipolar disorder and was experiencing increased anxiety, poor sleep, poor concentration, appeared to be internally preoccupied and responding to internal stimuli. She was noted to be vague in her responses and guarded. Reported agitated mood. Per crisis assessment sister reports history of Catatonia. She was recently hospitalized at [facility] as well. She has a history of not taking her medications after discharge. She also has a history of Cirrhosis of the liver however reports she has not had ETOH in one year. Today she reported that she takes her medications intermittently not every day. She also stated she talked to the VNA who was going to help with medication management and they both decided she did not need help with her medications. She was somewhat guarded during the assessment. She was calm and cooperative. I asked her what brought her here and some symptoms she has been struggling with and she stated, Depression, I'm a weirdo, I see things . Reports seeing the future. I see things, premonitions, see events that happen in real life . Reports VH, Events, things, people, things change I see it all . Reports AH, inner voices they talk to me. We have arguments then we get along and laugh and cry . She reports having paranoid thoughts but could not elaborate. Things have toned down a lot since I know they exist Katerine is alert and oriented x4. She is calm and cooperative. Denied SI, HI. Did not appear to be responding to internal stimuli during the assessment. Some delusional content. Reports AH and VH. Medications reviewed with patient and confirmed with inpatient records. Katerine was given a copy of her safety plan and I reviewed this with her. She reports her sister is supportive and lives in the same building where Katerine resides.
--- NOTE | 2023-02-24 16:20 | HO.PHP ---
Client's case has been opened and reviewed in treatment team.
--- NOTE | 2023-02-24 22:14 | P.HPPSP_ITS ---
HPI Date of Service: 02/24/23 Chief Complaint: bipolar Sources of Information: patient interviewed, chart reviewed and crisis/core team assessment reviewed HPI Narrative: Patient is a 42 year old female with a history of Bipolar disorder who is being stepped down from inpatient stay at [facility] [place] [place] from 01/09 until 01/20. This was the 2nd of two [facility] inpatient admissions for petra, agitation and psychosis in the context of poor medication compliance. She was discharged on 5 mg of risperidone which she reportedly has not been taking except on occasion when she leaves the house. She is currently presribed acamprosate, oxcarbazepine, folic acid, hydroxyzine as well as the risperidone. She reports she took her medications today to come to the program. She clarifies that this was only the hydroxyzine and that she is not sure of the last time she took risperidone. She did not take it yesterday. She is not sure she has taken it since discharge from hospital. She indicates she may have taken it several times, she also indicates that she may not have taken any since being discharged from the hospital a month ago. She reports chronic AH and VH and that nothing changes this and cites this as a reason she doesn't bother taking her medications. She does not feel they do much for her other than making her think slow. She reports having things to do at home and so doesn't take medication which interfers with her ability to attend to board hammer operator or other tasks. Overall she is a poor historian. She is vague in most responses and difficult to engage in treatment. She reports being clairvoyant and has an ability to see the future through premonitions she receives. She endorses having AH and VH of hearing people talk and seeing odd things coming out of the [place], respectively. She says these things used to be frightening to her but that she is now used to it. She wouldn't mind if they resolved but does not feel like she needs to try hard to treat them because she is used to them by now and that these voices and aberrant thoughts do not cause her much if any distress. She expresses disinterest in taking medication and preference to be left alone by others. She has family in the area but says she avoids them. She denies any paranoid ideation on inquiry but is guarded in her responses and seems suspicious of others. Her main complaint is sleep disturbance, she barely gets 4 - 5 hours. She also reports low energy, She is ambivalent about being at the program, but says it is something to try . She says her main goal is to try not to stress out CURRENT MEDICATIONS (patient is not complying with medications, except hydroxyzine which she will take when she leaves the house) hydroxyzine 75 mg TID PRN acamprosate 666 mg TID folic acid 1 mg qd oxcarbazapine 150 mg qAM/ 300 mg qHS risperidone 5 mg qHS Past Psychiatric History: At least 3 prior inpatient phsyciatric hospitilizations at [facility]. No reported suicide attempts Denies any SIB Denies hx of aggression Reported diagnosis of Bipolar Disorder [facility] Medical History (Updated 03/07/23 @ 23:37 by Daya Barron MD) Vertebrogenic low back pain Upper back pain on left side Transaminitis Post concussion syndrome Occipital headache Lower back pain Frequent headaches Edema leg Chronic pain of both knees Allergic rhinitis Acquired pancytopenia Routine medical exam Bipolar disorder Alcohol dependence Alcoholic cirrhosis Narrative: Hx of liver problems, saw PCP 2 weeks naomi for check-up Denies cardiac issues, DM, or hx of strokes?TIA or seizures Nulligravid G0 LMP: years ago, pt presumes she is post-menopausal Ht: 5'5 Wt: 174 lbs ALLERGIES: naproxen Family History: None reported Social History: Single, never , no children. She lives alone, has pet cats. Patient graduated high school and had some college education. 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 She lives alone in [place]. Substance History: She reports history of alcohol abuse/dependence. Has been sober for almost a year (stopped drinking due to liver problems) Cannabis use: variable but usually daily, for years calms me down denies any adverse effects or paranoia Trauma History: Patient declines to elaborate. Diagnostics Vital Signs (24Hr): Vital Signs - 24 hr 02/24/23 10:36 Temperature 97.6 F Pulse Rate 76 Blood Pressure 92/62 BMI result Body Mass Index 30.0 Meds/Allergies Allergies Allergies Allergy/AdvReac Type Severity Reaction Status Date / Time naproxen Allergy Unknown Verified 02/24/23 10:35 No Known Drug Allergies Allergy Unknown Verified 01/08/23 16:36 Mental Status Exam Mental Status Exam Level of Consciousness: Awake and Alert Patient Behavior: Guarded and Suspicious Behavior Comments: calm, pleasant but evasive, minimally cooperative Mood Description: Anxious Ability to Follow Directions: Fair Speech Pattern: Spontaneous Speech and Rambling (not pressured) Memory Description: Remote Impaired and Recent Impaired Hallucinations: Auditory Delusions: Ideas of Reference Thought Process: Illogical and Linear Thought Content: positive for Circumstantial, positive for Perseveration and positive for Preoccupation (overvalued ideas/ delusional ideation) Depressive Symptoms: Increased Anxiety, Diff. Making Decisions, Increased Irritability, Difficulty Sleeping, Muscle Pain, Loss of Int. in Activity, Isolating-Friends/Family and Difficulty Concentrating Judgement: Poor Judgement and Insight: Insight limited, judgment fair Assessment & Plan Assessment & Plan (1) Other psychotic disorder not due to a substance or known physiological condition: Status: Acute Code(s): F28 - Other psychotic disorder not due to a substance or known physiological condition Assessment and Plan: r/o Schizoaffective Disorder (2) Bipolar 1 disorder, depressed: Status: Acute Code(s): F31.9 - Bipolar disorder, unspecified (3) Cannabis abuse: Status: Acute Code(s): F12.10 - Cannabis abuse, uncomplicated (4) Alcohol abuse, in remission: Status: Acute Code(s): F10.11 - Alcohol abuse, in remission Plan Admit to PHP Patient is not compliant with medications, she would not agree to adhere with treatment but unable to articulate her rationale for this I initiated discussion about injectable long acting treatment options, specifically Invega Sustenna since she does not feel Risperdal is helpful but is reportedly tolerating the Risperdal and may make transitioining to Invega injectable a reasonable option. She was not interested in discussing other me dications. She is not interested in taking ABilify. s Patient agrees to consider long-acting injectable as option for improve treatment adherence At this time patient is not deemed an imminent risk of harm to self or others and is not at the level of decompensation/functional impairment as to warrant IPLOC Will continue to monitor closely, will follow up early next week Patient educated on: diagnosis, medication risk/benefits, substance abuse and therapeutic strategies Informed Consent: understands Reason for continued partial hosp. stay Substantial Risk for: inability to function, rapid decompensation and med/psych decompensation Certification I certify that partial hospital treatment is medically necessary due to the symptoms and problems resulting from the patient's mental illness and the failure to treat the patient at the partial hospital level of care would likely result in the patient requiring inpatient psychiatric care which could not be prevented at a less intensive level of care. Time Spent With Patient Time: Total time managing care of this patient today __60__ minutes.
--- NOTE | 2023-03-02 17:24 | HO.PHP ---
Pit Furnace Operator called Katerine to discuss her attendance and if she will be able to return to [facility] due to transportation issues. Left a voicemail, awaiting pt's return call.
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
--- NOTE | 2023-03-08 09:37 | PC.NURSE ---
Katerine did not show up to the program this morning. I called Katerine and left her a message to call me back.
--- NOTE | 2023-03-08 09:58 | PC.NURSE ---
I called Katerine again and she did not answer her phone. I called and left a message with Katerine's emergency contact Antonette and asked her to call me back when she gets the message.
--- NOTE | 2023-03-08 10:10 | PC.NURSE ---
I spoke to Katerine. She stated she had a panic attack today. She is having difficulty with transportation to the program. She stated she is depressed, having normal depression feelings , denied SI or any safety issues. She stated she did not leave the house this weekend. I told her Beti would be getting in touch with her later to f/u regarding attendance/transportation issues.
--- NOTE | 2023-03-08 14:37 | HO.PHP ---
Pt called [facility] and left a voicemail at 9am to inform PHP she did not have a ride to attend today and uncertain if she would have a ride tomorrow as well. Pt called by this writer technical publications at 12:30 to discuss her transportation issues and attendance, no answer, left a voicemail to call back. Pt did not reply. Actuarial Mathematician called Pt again at 2:30, no answer. Pt informed over voicemail that she will be discharged from [facility] due to her inabiity to attend (4 absences out of 7 scheduled days). Pt informed of PT1 services, encouraged she apply and contact [facility] if she would like to return at a later date.
--- NOTE | 2023-03-09 11:12 | HO.PHP ---
Pt contacted by phone at 11:00 am to confirm pt received voicemail messages left yesterday about her absences and discharge. Pt stated she called out this morning, stated she did not listen to her voicemails and was planning to return but currently can not afford to get her car fixed so can not say when she could return for. Pt stated she thought she could miss 3 days, pt informed she missed 4 out of 7, and her call out today would have made 5 absences. Pt informed she can return to [facility], encouraged to call back to schedule an intake and a restart date when she will be better able to benefit from the program. Attempt made by mortgage underwriter to provide pt with transportation support info but pt declined. Pt also declined phone numbers and this mortgage underwriter's attempt to refer to providers for services.
== END 2023-03-05 23:59 | disposition home or self-care (01) ==
LOC: HO.PHPA 09:30
PROVIDERS: Visit Provider Psychiatry & Neurology Psychiatry
DX: F31.9 Bipolar disorder, unspecified (principal); F28 Other psychotic disorder not due to a substance or known physiological condition; F12.10 Cannabis abuse, uncomplicated; F10.11 Alcohol abuse, in remission
CPT/HCPCS: 90791; 90853

== ENCOUNTER → 2023-03-05 09:30 | Outpatient (BNV) | payer OTHER, SELFPAY | PROVIDERS: Visit Provider Psychiatry & Neurology Psychiatry | DX: F31.74 Bipolar disorder, in full remission, most recent episode manic (principal); F28 Other psychotic disorder not due to a substance or known physiological condition; F12.10 Cannabis abuse, uncomplicated; F10.11 Alcohol abuse, in remission | CPT/HCPCS: 99214 ==

== ENCOUNTER 2024-03-25 19:09 | Emergency (ER) | payer OTHER, SELFPAY ==
[2024-03-25 19:25] VITALS: BP 142/87; PULSE 87; RESP 16; TEMP 37; O2SAT 100; BMI 28.7
--- NOTE | 2024-03-25 19:37 | PC.NURSE ---
patient soon after arrival declined to cooperate with changeover im here for no reason and soon thereafter i smell like piss , and despite encouragement to adjourn to rest room client disrobed in common are and donned gown and pants, then thereafter in room removed pants.
--- NOTE | 2024-03-25 20:09 | ED_ITS ---
HPI - Psych General Chief Complaint: Psychiatric Symptoms Stated Complaint: sect 12 Time Seen by Provider: 03/25/24 19:09 Source: patient and EMS Mode of arrival: EMS Limitations: no limitations History of Present Illness ED Provider: Dr. Irma Kern HPI Narrative: Patient comes to the emergency room via ambulance. According to EMS, [facility] clinician saw the patient in the field and determined that she needed to come to the emergency room. Seems that the patient's family were concerned that the patient is decompensated from schizophrenia, not taking medications, disheveled, no taking care of herself, living in the car not eating or drinking. Patient was section 12 by the clinician and arrived via ambulance to the emergency room. On a Section 12, it says that the patient has been responding to internal stimuli while sitting in the car. Patient states that she came against her will. According to the patient, patient got into an argument with her sister. Patient states that she wants to be left alone, not deal with any of her family or friends, she has once to think things through in her car. Patient states that it is falls that she has not been eating and drinking, patient states that she has been eating and drinking in the last time she did was today. Patient has no complaints other than being here. Patient admits that she has been depressed, states that she is not taking her medications because none of them work. Patient denies being SI or HI. Related Data Previous Rx's ?Medication ?Instructions ?Recorded acamprosate 333 mg tablet,delayed 666 mg (2 x 333 mg) PO TID 30 days 01/20/23 release #180 tabs folic acid 1 mg tablet 1 mg PO DAILY 30 days #30 tabs 01/20/23 hydroxyzine HCl 25 mg tablet 75 mg (3 x 25 mg) PO TID PRN 01/20/23 Anxiety 7 days #63 tabs multivitamin (Daily-Kristopher tablet) 1 tab PO DAILY 30 days #30 tabs 01/20/23 oxcarbazepine 150 mg tablet 150 mg PO DAILY 30 days #30 tabs 01/20/23 oxcarbazepine 300 mg tablet 300 mg PO BEDTIME 30 days #30 tabs 01/20/23 risperidone 1 mg tablet 5 mg (5 x 1 mg) PO BEDTIME 14 days 01/20/23 #70 tabs Allergies Allergy/AdvReac Type Severity Reaction Status Date / Time naproxen Allergy Unknown Verified 03/25/24 19:33 No Known Drug Allergies Allergy Unknown Verified 03/25/24 19:33 Review of Systems Review of Systems: Constitutional : No Weight loss, No Fever, No Chills, No Night Sweats, No Fatigu e, No Malaise ENT/Mouth : No Hearing loss, No Ear Pain, No Nasal Congestion, No Sinus Pain, No Hoarseness, No sore throat, No Rhinorrhea, No Swallowing Difficulty Eyes: No Eye Pain, No Swelling, No Redness, No Foreign Body, No Discharge, No Vision Changes Cardiovascular : No Chest Pain, No SOB, No Dyspnea on Exertion, No Orthopnea, No Edema, No Palpitations Respiratory : No Cough, No Sputum, No Wheezing, No Smoke Exposure, No Dyspnea Gastrointestinal : No Nausea, No Vomiting, No Diarrhea, No Constipation, No abdominal Pain, No Hematochezia, No Melena Genitourinary : no irregular bleeding, No Dysuria, No Urinary Frequency, No Hematuria, No Urinary Incontinence, No Urgency, No Flank Pain, No Urinary Flow Changes, No Hesitancy Musculoskeletal : No joint pain, No Myalgias, No Joint Swelling Skin : No Skin Lesions, No rash Neuro : No Weakness, No Numbness, No Paresthesias, No Loss of Consciousness, No Dizziness, No Headache Psych : Admits to being depressed, bit anxious, no SI or HI, denies hearing voices Heme/Lymph: No Bruising, No Bleeding,No Lymphadenopathy Endocrine : No Polyuria, No Polydipsia, No Temperature Intolerance PMFSH Past Medical History Medical History Vertebrogenic low back pain Upper back pain on left side Transaminitis Post concussion syndrome Occipital headache Lower back pain Frequent headaches Edema leg Chronic pain of both knees Allergic rhinitis Acquired pancytopenia Routine medical exam Bipolar disorder Alcohol dependence Alcoholic cirrhosis Social History Social History Household Members: Family and Other Household Members Other:: Roommate Housing: Apartment Do you presently have visiting nurse or other home services: No Patient Tobacco Use Status: Former Tobacco user Tobacco use type: Cigarette e-Cigarette/Vaping Use: Never Used Second Hand Smoke Exposure: No Substance Use Type: Marijuana Advance Directives: No Advance Directives Information Provided: No Do you have a plan to hurt others: No Plan service: No Sexual orientation: Decline to Answer Physical Exam Vital Signs: Vital Signs: Last Vital Signs Temp 98.6 F 03/25/24 19:25 Pulse 87 03/25/24 19:25 Resp 16 03/25/24 19:25 BP 142/87 H 03/25/24 19:25 Pulse Ox 100 03/25/24 19:25 O2 Del Method Room Air 03/25/24 19:25 BMI result Body Mass Index 28.7 Const: Other: Appearance: Alert. Oriented X3. No acute distress. Eyes: Pupils equal, round and reactive to light. ENT: Pharynx normal. Neck: Normal inspection. Neck supple. No lymph nodes noted. No crepitus CVS: Normal heart rate and rhythm. Pulses normal. Normal S1 and S2 Respiratory: No respiratory distress. Breath sounds normal. No Wheezing. No rales Abdomen: Soft and nontender. No rigidity. No distention. Skin: Skin warm and dry. Normal skin color. Normal skin turgor. Extremities: No lower extremity edema. No Lacerations. No Rash Neuro: Oriented X 3. No motor deficit. No sensory deficit. Moving all extremities. No slurred speech. CN 2 through 12 grossly intact Psych: Angry, crying Course Course Course Narrative: Patient does not want to be here, knows that she is on a Section 12 but states it was unfair because they lied about the reason that she had to come. Patient refusing labs Patient is on a Section 12 started in the community I discussed the patient with Marcus from the care team, he will get more information from his colleagues for that Section 12 the patient in the community. Medical Decision Making Medical Decision Making [facility] Narrative: -patient is awake, alert and oriented x3, making perfect sense, I do not believe that patient is responding to internal stimuli. Patient is having normal and coherent conversation, not quite sure why patient is on a Section 12. On patient's notes from the clinician from [facility] [place], it states that patient is on renal failure. It is unclear where this came from. Patient has no previous labs, patient denies any history of renal failure. I asked my colleague Marcus from the care team to evaluate the patient. He was able to get in touch with the patient's sister, who called 911. The sister agrees that there was some kind of disagreement between them earlier today, however, she called because the patient would not go inside of the house. As mentioned above, the patient was in her car because she was angry at her sister. Patient's sister agrees that the patient can return home. Patient very angry, refused any labs. As mentioned above, patient is alert and oriented x3. Marcus and I have agree that there is no reason to keep the patient on a Section 12 at this time. Patient admits that she is not taking her medications for depression because they do not work. Patient is not interested in up psych consult Per patient's request, we will discharge the patient home at this time, 22:20 Differential Diagnosis Differential Diagnoses: The differential diagnosis associated with the presentation includes (Anxiety, depression) Admission/Observation Consideration of admission/observation: Escalation of care including admission/observation considered (Patient came in on a Section 12, reason unclear) Discharge Plan Discharge Clinical Impression: Anxiety and depression Patient Disposition: Home, Self-Care Instructions: Anxiety (ED), Depression (ED) Prescriptions: No Action oxcarbazepine 150 mg Tablet 150 mg PO DAILY 30 Days Qty: 30 0RF oxcarbazepine 300 mg Tablet 300 mg PO BEDTIME 30 Days Qty: 30 0RF Patient Comments: Last took a week ago. risperidone 1 mg Tablet 5 mg PO BEDTIME 14 Days Qty: 70 1RF multivitamin [Daily-Kristopher] Tablet 1 tab PO DAILY 30 Days Qty: 30 0RF hydroxyzine HCl 25 mg Tablet 75 mg PO TID PRN (Reason: Anxiety) 7 Days Qty: 63 1RF folic acid 1 mg tablet 1 mg PO DAILY 30 Days Qty: 30 0RF acamprosate 333 mg tablet,delayed release (DR/EC) 666 mg PO TID 30 Days Qty: 180 0RF Interventions: Beccaria-Suicide Risk Severity Scale Last Done: 03/25/24 19:40 Print Language: Belarusian
--- NOTE | 2024-03-25 20:17 | MHC.EDTECH ---
t/w approached pt to obtain bloodwork, pt does not want lab work done at this time stating i don't like needles and there is nothing medically wrong for you to check out. rn aware..
[2024-03-25 22:22] VITALS: BP 128/70; PULSE 80; RESP 16; TEMP 37; O2SAT 100
== END 2024-03-25 22:27 | disposition home or self-care (01) ==
PROVIDERS: Emergency Provider Emergency Medicine; PCP Internal Medicine
DX: F32.A Depression, unspecified (principal); F41.8 Other specified anxiety disorders; Z91.148 Patient's other noncompliance with medication regimen for other reason; Z87.891 Personal history of nicotine dependence
CPT/HCPCS: 99284; S9485